=== PATIENT | female | born 1955 | race Hispanic/Latino ===

== ENCOUNTER 2020-03-08 14:39 | Inpatient (IN) | payer SELFPAY ==
[~2020-03-08] VITALS: Ht 157.5 cm; Wt 74.8 kg
[~2020-03-08 14:39] MED LIST: COREG6.25 MG PO; MICARDIS80 MG PO
[2020-03-08] MEDS ORDERED: ASPIRIN 81 MG CHEW TAB PO ONE (15:45)
[2020-03-08 17:18] LABS: BASOPHILS # (AUTO) 0.1 (0.0-0.1); BASOPHILS % 0.7 % (0.0-1.0); EOSINOPHILS # (AUTO) 0.2 (0.0-0.4); EOSINOPHILS % 1.3 % (0.0-6.0); HEMATOCRIT 27.6 % (34.2-44.1); HEMOGLOBIN 9.2 g/dL (12.0-16.0); LYMPHOCYTES # (AUTO) 2.4 (1.0-3.2); LYMPHOCYTES % 19.2 % (18.0-39.1); MEAN CORPUSCULAR HGB CONC 33.3 g/dL (31-35); MEAN CORPUSCULAR VOLUME 98.9 fL (81-99); NEUTROPHILS # (AUTO) 8.9 (2.1-6.9); NEUTROPHILS % 70.2 % (38.7-80.0); PLATELET COUNT 168 x10e3/uL (140-360); RED BLOOD COUNT 2.79 x10e6/uL (3.6-5.1); RED CELL DISTRIBUTION WIDTH 16.1 % (11.7-14.4)
[2020-03-08 17:39] LABS: ALANINE AMINOTRANSFERASE 17 IU/L (0-55); ALBUMIN 2.8 g/dL (3.5-5.0); ALBUMIN/GLOBULIN RATIO 0.6 (0.8-2.0); ALKALINE PHOSPHATASE 101 IU/L (40-150); ANION GAP 12.4 mmol/L (8-16); BLOOD UREA NITROGEN 5 mg/dL (7-26); BUN/CREATININE RATIO 7 (6-25); CALCIUM 8.4 mg/dL (8.4-10.2); CARBON DIOXIDE 25 mmol/L (22-29); CHLORIDE 99 mmol/L (98-107); CREATINE KINASE 18 IU/L (29-168); CREATININE, SERUM 0.73 mg/dL (0.57-1.11); EST GLOMERULAR FILTRATION RATE > 60 ML/MIN (60-); GLUCOSE 121 mg/dL (74-118); POTASSIUM 3.4 mmol/L (3.5-5.1); SODIUM 133 mmol/L (136-145)
[2020-03-08 22:43] VITALS: BP 139/71
[2020-03-08 22:44] VITALS: BP 139/71
[2020-03-08] MEDS: FUROSEMIDE INJ 10 MG/ML 4 ML VIAL IV SCH (23:13)
[2020-03-08 23:25] VITALS: BP 139/71
[2020-03-09] VITALS (7 sets, daily range): BP systolic 95–127; BP diastolic 43–72
[2020-03-09 06:21] LABS: BASOPHILS # (AUTO) 0.1 (0.0-0.1); BASOPHILS % 0.7 % (0.0-1.0); EOSINOPHILS # (AUTO) 0.3 (0.0-0.4); EOSINOPHILS % 2.2 % (0.0-6.0); HEMATOCRIT 25.4 % (34.2-44.1); HEMOGLOBIN 8.6 g/dL (12.0-16.0); LYMPHOCYTES % 22.6 % (18.0-39.1); MEAN CORPUSCULAR HEMOGLOBIN 32.8 pg (28-32); MEAN CORPUSCULAR HGB CONC 33.9 g/dL (31-35); MEAN CORPUSCULAR VOLUME 96.9 fL (81-99); MONOCYTES # (AUTO) 1.3 (0.2-0.8); NEUTROPHILS # (AUTO) 8.4 (2.1-6.9); PLATELET COUNT 137 x10e3/uL (140-360); RED BLOOD COUNT 2.62 x10e6/uL (3.6-5.1); RED CELL DISTRIBUTION WIDTH 16.3 % (11.7-14.4)
[2020-03-09 07:09] LABS: ALANINE AMINOTRANSFERASE 15 IU/L (0-55); ALBUMIN 2.4 g/dL (3.5-5.0); ALBUMIN/GLOBULIN RATIO 0.5 (0.8-2.0); ALKALINE PHOSPHATASE 89 IU/L (40-150); ANION GAP 12.5 mmol/L (8-16); BLOOD UREA NITROGEN 5 mg/dL (7-26); BUN/CREATININE RATIO 7 (6-25); CALCIUM 8.2 mg/dL (8.4-10.2); CARBON DIOXIDE 26 mmol/L (22-29); CHLORIDE 99 mmol/L (98-107); EST GLOMERULAR FILTRATION RATE > 60 ML/MIN (60-); GLUCOSE 107 mg/dL (74-118); POTASSIUM 3.5 mmol/L (3.5-5.1); SODIUM 134 mmol/L (136-145)
[2020-03-09] MEDS ORDERED: LACTULOSE SYRUP 20 GM/30 ML UDC PO PRN (08:00)
[2020-03-09] MEDS ORDERED: ONDANSETRON HCL INJ 2MG/ML 2ML 2 MG/ML VIAL IV PRN (08:00)
[2020-03-09] MEDS ORDERED: ZOLPIDEM TARTRATE 5 MG TAB PO PRN (08:00)
[2020-03-09 09:23] LABS: IRON 69 ug/dL (50-170); TRANSFERRIN < 70 mg/dL (180-382)
[2020-03-09 09:23] LABS: CHOL/HDL RATIO 4.5 (3.0-3.6)
[2020-03-09] MEDS: FUROSEMIDE INJ 10 MG/ML 4 ML VIAL IV SCH ×2 (09:34→21:45)
[2020-03-09] MEDS: SPIRONOLACTONE 25 MG TAB PO SCH ×2 (09:34→16:12)
[2020-03-09 09:35] LABS: INR 1.77
[2020-03-09 09:36] LABS: PARTIAL THROMBOPLASTIN TIME 50.8 seconds (23.8-35.5)
[2020-03-10] VITALS (9 sets, daily range): BP systolic 93–124; BP diastolic 49–71
[2020-03-10 02:02] LABS: CLARITY,URINE CLEAR (CLEAR); COLOR,URINE YELLOW (YELLOW); LEUKOCYTE ESTERASE ,URINE NEGATIVE (NEGATIVE); NITRITE,URINE NEGATIVE (NEGATIVE); PROTEIN,URINE DIPSTICK NEGATIVE (NEGATIVE)
[2020-03-10 02:03] LABS: BACTERIA,URINE FEW /HPF; EPITHELIAL CELLS,URINE FEW /LPF; KETONES,URINE NEGATIVE (NEGATIVE); URINE UROBILINOGEN 1 mg/dL (0.2 - 1); WBC,URINE (MAN) 0-5 /HPF (0-5)
[2020-03-10] MEDS ORDERED: PHYTONADIONE 10MG/ML 20 MG in SODIUM CHLORIDE 0.9% 100 ML IV ONE (02:30)
[2020-03-10] MEDS ORDERED: PHYTONADIONE 10 MG/ML AMP IV ONE (02:30)
[2020-03-10] MEDS ORDERED: THIAMINE HCL INJ 100 MG/ML 2ML VIAL IV ONE (03:15)
[2020-03-10] MEDS: MULTIVITAMINS- 12 INJECTION 10 ML, FOLIC ACID MDV 5 MG, THIAMINE HCL INJ 100 MG in SODI... IV SCH ×2 (05:30→20:13)
[2020-03-10 06:22] LABS: BASOPHILS # (AUTO) 0.1 (0.0-0.1); BASOPHILS % 0.7 % (0.0-1.0); EOSINOPHILS # (AUTO) 0.2 (0.0-0.4); EOSINOPHILS % 1.6 % (0.0-6.0); HEMATOCRIT 24.3 % (34.2-44.1); HEMOGLOBIN 8.2 g/dL (12.0-16.0); LYMPHOCYTES # (AUTO) 2.8 (1.0-3.2); LYMPHOCYTES % 21.6 % (18.0-39.1); MEAN CORPUSCULAR HEMOGLOBIN 33.2 pg (28-32); MEAN CORPUSCULAR HGB CONC 33.7 g/dL (31-35); MEAN CORPUSCULAR VOLUME 98.4 fL (81-99); MONOCYTES # (AUTO) 1.2 (0.2-0.8); MONOCYTES % 9.6 % (4.4-11.3); NEUTROPHILS # (AUTO) 8.5 (2.1-6.9); PLATELET COUNT 154 x10e3/uL (140-360); RED BLOOD COUNT 2.47 x10e6/uL (3.6-5.1); RED CELL DISTRIBUTION WIDTH 16.2 % (11.7-14.4)
[2020-03-10 06:53] LABS: ALANINE AMINOTRANSFERASE 16 IU/L (0-55); ALBUMIN 2.5 g/dL (3.5-5.0); ALBUMIN/GLOBULIN RATIO 0.6 (0.8-2.0); ALKALINE PHOSPHATASE 84 IU/L (40-150); ANION GAP 10.5 mmol/L (8-16); BLOOD UREA NITROGEN 6 mg/dL (7-26); BUN/CREATININE RATIO 8 (6-25); CARBON DIOXIDE 28 mmol/L (22-29); CHLORIDE 99 mmol/L (98-107); CREATININE, SERUM 0.78 mg/dL (0.57-1.11); EST GLOMERULAR FILTRATION RATE > 60 ML/MIN (60-); GLUCOSE 106 mg/dL (74-118); POTASSIUM 3.5 mmol/L (3.5-5.1); SODIUM 134 mmol/L (136-145)
[2020-03-10] MEDS: SPIRONOLACTONE 25 MG TAB PO SCH ×2 (09:00→17:46)
[2020-03-10] MEDS: FUROSEMIDE INJ 10 MG/ML 4 ML VIAL IV SCH ×2 (09:00→20:13)
[2020-03-11] VITALS (7 sets, daily range): BP systolic 94–127; BP diastolic 45–72
[2020-03-11 05:57] LABS: ALANINE AMINOTRANSFERASE 16 IU/L (0-55); ALBUMIN 2.4 g/dL (3.5-5.0); ALBUMIN/GLOBULIN RATIO 0.6 (0.8-2.0); ALKALINE PHOSPHATASE 87 IU/L (40-150); ANION GAP 11.2 mmol/L (8-16); BLOOD UREA NITROGEN 6 mg/dL (7-26); BUN/CREATININE RATIO 8 (6-25); CALCIUM 7.9 mg/dL (8.4-10.2); CARBON DIOXIDE 28 mmol/L (22-29); CHLORIDE 100 mmol/L (98-107); CREATININE, SERUM 0.77 mg/dL (0.57-1.11); EST GLOMERULAR FILTRATION RATE > 60 ML/MIN (60-); GLUCOSE 100 mg/dL (74-118); POTASSIUM 3.2 mmol/L (3.5-5.1); SODIUM 136 mmol/L (136-145)
[2020-03-11 06:02] LABS: BASOPHILS # (AUTO) 0.1 (0.0-0.1); BASOPHILS % 0.7 % (0.0-1.0); EOSINOPHILS # (AUTO) 0.4 (0.0-0.4); EOSINOPHILS % 3.2 % (0.0-6.0); HEMATOCRIT 23.5 % (34.2-44.1); LYMPHOCYTES # (AUTO) 3.1 (1.0-3.2); MEAN CORPUSCULAR HEMOGLOBIN 33.1 pg (28-32); MEAN CORPUSCULAR VOLUME 97.1 fL (81-99); MONOCYTES # (AUTO) 1.1 (0.2-0.8); MONOCYTES % 9.6 % (4.4-11.3); NEUTROPHILS # (AUTO) 6.4 (2.1-6.9); PLATELET COUNT 67 x10e3/uL (140-360); RED BLOOD COUNT 2.42 x10e6/uL (3.6-5.1)
[2020-03-11] MEDS ORDERED: FUROSEMIDE INJ 10 MG/ML 4 ML VIAL IV SCH (07:00)
[2020-03-11] MEDS ORDERED: POTASSIUM CHLORIDE 20 MEQ TAB CR PO NR (07:00)
[2020-03-11] MEDS ORDERED: POTASSIUM CHLORIDE 20MEQ/100ML 100 ML IV ONE (09:00)
[2020-03-11] MEDS: FUROSEMIDE INJ 10 MG/ML 4 ML VIAL IV SCH ×2 (09:00→21:19)
[2020-03-11] MEDS: SPIRONOLACTONE 25 MG TAB PO SCH ×2 (09:00→17:00)
[2020-03-11] MEDS: MULTIVITAMINS- 12 INJECTION 10 ML, FOLIC ACID MDV 5 MG, THIAMINE HCL INJ 100 MG in SODI... IV SCH (12:14)
[2020-03-11 12:37] LABS: BODY FLUID APPEARANCE CLEAR; BODY FLUID COLOR YELLOW; RBC,BODY FLUID 97 cells/uL; WBC,BODY FLUID 272 cells/uL
[2020-03-11 12:41] LABS: LYMPHOCYTES,BODY FLUID 30 %; MONO/MACROPHG,BODY FLUID 43 %; NEUTROPHILS,BODY FLUID 27 %
[2020-03-12] VITALS (8 sets, daily range): BP systolic 93–118; BP diastolic 49–64
[2020-03-12 06:20] LABS: INR 1.86; PROTHROMBIN TIME 22.9 seconds (11.9-14.5)
[2020-03-12 06:21] LABS: PARTIAL THROMBOPLASTIN TIME 48.7 seconds (23.8-35.5)
[2020-03-12 06:31] LABS: ALANINE AMINOTRANSFERASE 18 IU/L (0-55); ALBUMIN 2.5 g/dL (3.5-5.0); ALBUMIN/GLOBULIN RATIO 0.6 (0.8-2.0); ALKALINE PHOSPHATASE 88 IU/L (40-150); ANION GAP 12.1 mmol/L (8-16); BLOOD UREA NITROGEN 6 mg/dL (7-26); BUN/CREATININE RATIO 8 (6-25); CARBON DIOXIDE 27 mmol/L (22-29); CHLORIDE 99 mmol/L (98-107); CREATININE, SERUM 0.79 mg/dL (0.57-1.11); EST GLOMERULAR FILTRATION RATE > 60 ML/MIN (60-); GLUCOSE 94 mg/dL (74-118); POTASSIUM 3.1 mmol/L (3.5-5.1); SODIUM 135 mmol/L (136-145)
[2020-03-12] MEDS: MULTIVITAMINS- 12 INJECTION 10 ML, FOLIC ACID MDV 5 MG, THIAMINE HCL INJ 100 MG in SODI... IV SCH ×2 (06:42→21:58)
[2020-03-12 06:49] LABS: BASOPHILS # (AUTO) 0.1 (0.0-0.1); BASOPHILS % 0.9 % (0.0-1.0); EOSINOPHILS # (AUTO) 0.3 (0.0-0.4); EOSINOPHILS % 2.8 % (0.0-6.0); HEMATOCRIT 23.3 % (34.2-44.1); LYMPHOCYTES # (AUTO) 2.3 (1.0-3.2); LYMPHOCYTES % 26.3 % (18.0-39.1); MEAN CORPUSCULAR HEMOGLOBIN 33.2 pg (28-32); MEAN CORPUSCULAR HGB CONC 34.3 g/dL (31-35); MEAN CORPUSCULAR VOLUME 96.7 fL (81-99); MONOCYTES # (AUTO) 0.8 (0.2-0.8); MONOCYTES % 8.6 % (4.4-11.3); NEUTROPHILS # (AUTO) 5.4 (2.1-6.9); NEUTROPHILS % 61.2 % (38.7-80.0); PLATELET COUNT 156 x10e3/uL (140-360); RED BLOOD COUNT 2.41 x10e6/uL (3.6-5.1); RED CELL DISTRIBUTION WIDTH 15.9 % (11.7-14.4)
[2020-03-12] MEDS: FUROSEMIDE INJ 10 MG/ML 4 ML VIAL IV SCH ×2 (09:20→20:39)
[2020-03-12] MEDS: SPIRONOLACTONE 25 MG TAB PO SCH ×2 (09:20→16:43)
[2020-03-12 11:27] LABS: PLATELET CLUMPS FEW; PLATELET ESTIMATE ADEQUATE
[2020-03-12 11:28] LABS: POIKILOCYTOSIS SLIGHT; RBC MORPHOLOGY COMMENT NORMAL
[2020-03-13] VITALS: BP 103/57
[2020-03-13] MEDS ORDERED: POTASSIUM CHLORIDE 20 MEQ TAB CR PO STA
[2020-03-13 04:00] VITALS: BP 98/50
[2020-03-13] MEDS ORDERED: ALDACTONE25 MG PO (07:01)
[2020-03-13] MEDS ORDERED: LASIX10 MG/ML PO (07:01)
[2020-03-13] MEDS ORDERED: LACTULOSE20 GM/30 M PO (07:01)
[2020-03-13] MEDS ORDERED: XIFAXAN550 MG PO (07:01)
[2020-03-13 07:40] LABS: BASOPHILS # (AUTO) 0.1 (0.0-0.1); EOSINOPHILS # (AUTO) 0.3 (0.0-0.4); LYMPHOCYTES # (AUTO) 2.6 (1.0-3.2); LYMPHOCYTES % 25.3 % (18.0-39.1); MEAN CORPUSCULAR HEMOGLOBIN 32.8 pg (28-32); MEAN CORPUSCULAR HGB CONC 33.3 g/dL (31-35); MEAN CORPUSCULAR VOLUME 98.4 fL (81-99); MONOCYTES # (AUTO) 0.8 (0.2-0.8); MONOCYTES % 8.2 % (4.4-11.3); NEUTROPHILS # (AUTO) 6.3 (2.1-6.9); NEUTROPHILS % 62.1 % (38.7-80.0); PLATELET COUNT 152 x10e3/uL (140-360); RED BLOOD COUNT 2.44 x10e6/uL (3.6-5.1); RED CELL DISTRIBUTION WIDTH 15.9 % (11.7-14.4)
[2020-03-13 08:08] VITALS: BP 106/52
[2020-03-13 08:13] LABS: MAGNESIUM 1.4 MG/DL (1.3-2.1); PHOSPHORUS 2.5 MG/DL (2.3-4.7)
[2020-03-13 08:15] LABS: ALANINE AMINOTRANSFERASE 19 IU/L (0-55); ALBUMIN 2.4 g/dL (3.5-5.0); ALBUMIN/GLOBULIN RATIO 0.6 (0.8-2.0); ALKALINE PHOSPHATASE 88 IU/L (40-150); ANION GAP 12.6 mmol/L (8-16); BLOOD UREA NITROGEN 6 mg/dL (7-26); BUN/CREATININE RATIO 8 (6-25); CARBON DIOXIDE 26 mmol/L (22-29); CHLORIDE 102 mmol/L (98-107); CREATININE, SERUM 0.78 mg/dL (0.57-1.11); EST GLOMERULAR FILTRATION RATE > 60 ML/MIN (60-); GLUCOSE 100 mg/dL (74-118); POTASSIUM 3.6 mmol/L (3.5-5.1); SODIUM 137 mmol/L (136-145)
[2020-03-13] MEDS: FUROSEMIDE INJ 10 MG/ML 4 ML VIAL IV SCH (08:17)
[2020-03-13] MEDS ORDERED: ONDANSETRON HCL 4 MG ORAL DISINTEGRATING TAB PO PRN (08:30)
[2020-03-13 08:39] VITALS: BP 106/52
[2020-03-13] MEDS ORDERED: RIFAXIMIN 550 MG TABLET PO SCH (09:00)
[2020-03-13] MEDS ORDERED: SPIRONOLACTONE 25 MG TAB PO SCH (09:00)
== END 2020-03-13 10:58 | disposition home or self-care (01) | DRG 434 ==
LOC: ER 15:26 → ERHOLD 21:09 → MED/SURG2 22:15
PROVIDERS: ADMIT Internal Medicine; ATTEND Internal Medicine
PROC: 0W9G3ZZ Drainage of Peritoneal Cavity, Percutaneous Approach (ICD-10-PCS; principal; 2020-03-11)
DX: K70.31 Alcoholic cirrhosis of liver with ascites (principal); F10.20 Alcohol dependence, uncomplicated; D63.8 Anemia in other chronic diseases classified elsewhere; Z20.822 Contact with and (suspected) exposure to COVID-19
CPT/HCPCS: 36415; 49083; 71046; 74470; 76705; 80053; 80061; 81001; 82140; 82550; 82553; 82607; 82746; 83036; 83540; 83690; 83735; 83880; 84100; 84466; 84484; 85025; 85045; 85610; 85730; 87070; 87205; 88112; 88305; 89051; 93005; 93925; 93970; 99284; J1940; J3411; J3430; J3480; J7030; J7050; U0002

== ENCOUNTER 2021-05-17 22:23 | Inpatient (IN) | payer OTHER ==
[~2021-05-17] VITALS: Ht 157.5 cm; Wt 81.2 kg
[~2021-05-17 22:23] MED LIST changes: +ALDACTONE25 MG PO; +LACTULOSE20 GM/30 M PO; +LASIX10 MG/ML PO; +XIFAXAN550 MG PO
[2021-05-17 23:38] LABS: BASOPHILS % 0.4 % (0.0-1.0); EOSINOPHILS # (AUTO) 0.5 (0.0-0.4); EOSINOPHILS % 6.8 % (0.0-6.0); LYMPHOCYTES # (AUTO) 1.9 (1.0-3.2); LYMPHOCYTES % 24.1 % (18.0-39.1); MEAN CORPUSCULAR HEMOGLOBIN 23.3 pg (28-32); MEAN CORPUSCULAR HGB CONC 28.6 g/dL (31-35); MEAN CORPUSCULAR VOLUME 81.5 fL (81-99); MONOCYTES # (AUTO) 0.9 (0.2-0.8); MONOCYTES % 10.8 % (4.4-11.3); NEUTROPHILS # (AUTO) 4.5 (2.1-6.9); PLATELET COUNT 173 x10e3/uL (140-360); RED BLOOD COUNT 1.89 x10e6/uL (3.6-5.1); RED CELL DISTRIBUTION WIDTH 19.7 % (11.7-14.4)
[2021-05-17 23:43] LABS: INR 1.93; PROTHROMBIN TIME 23.6 seconds (11.9-14.5)
[2021-05-17 23:51] LABS: ALBUMIN 2.8 g/dL (3.5-5.0); ALBUMIN/GLOBULIN RATIO 0.7 (0.8-2.0); ANION GAP 15.1 mmol/L (8-16); CREATININE, SERUM 2.71 mg/dL (0.57-1.11); HEMATOCRIT 15.4 % (34.2-44.1); HEMOGLOBIN 4.4 g/dL (12.0-16.0); POTASSIUM 4.1 mmol/L (3.5-5.1)
[2021-05-17 23:52] LABS: CALCIUM 9.3 mg/dL (8.4-10.2)
[2021-05-18] VITALS (38 sets, daily range): BP systolic 83–133; BP diastolic 41–78
[2021-05-18 00:11] LABS: WBC,URINE (MAN) 21-50 /HPF (0-5)
[2021-05-18 00:12] LABS: BACTERIA,URINE MODERATE /HPF; EPITHELIAL CELLS,URINE MODERATE /LPF
[2021-05-18 00:14] LABS: CALCIUM CARBONATE CRYSTALS,UR FEW
[2021-05-18] MEDS ORDERED: OCTREOTIDE ACETATE 500 MCG in SODIUM CHLORIDE 0.9% 250ML 250 ML IV STA (00:15)
[2021-05-18 00:16] LABS: CLARITY,URINE CLEAR (CLEAR); COLOR,URINE YELLOW (YELLOW); KETONES,URINE NEGATIVE (NEGATIVE); LEUKOCYTE ESTERASE ,URINE NEGATIVE (NEGATIVE); NITRITE,URINE NEGATIVE (NEGATIVE); PROTEIN,URINE DIPSTICK NEGATIVE (NEGATIVE); RENAL EPITHELIAL CELLS,URINE FEW; TRANSITIONAL EPI CELLS,URINE FEW; URINE UROBILINOGEN 1 mg/dL (0.2 - 1)
[2021-05-18] MEDS ORDERED: CEFTRIAXONE 1 GM VIAL IV ONE (00:30)
[2021-05-18] MEDS ORDERED: ONDANSETRON HCL INJ 2MG/ML 2ML 2 MG/ML VIAL IV PRN ×2 (00:30→01:30)
[2021-05-18] MEDS ORDERED: LACTULOSE SYRUP 20 GM/30 ML UDC PO PRN (00:30)
[2021-05-18] MEDS ORDERED: CEFTRIAXONE 1 GM in SODIUM CHLORIDE 0.9% 50ML 50 ML IV ONE (01:00)
[2021-05-18] MEDS ORDERED: ALBUTEROL/IPRATROPIUM 3 ML NEB NEB PRN (01:30)
[2021-05-18] MEDS ORDERED: HYDRALAZINE HCL 20 MG/ML VIAL IV PRN (01:30)
[2021-05-18] MEDS ORDERED: LIDOCAINE 4% PATCH TP PRN (01:30)
[2021-05-18] MEDS ORDERED: DOCUSATE SODIUM 100 MG CAP PO PRN (01:30)
[2021-05-18] MEDS ORDERED: DIPHENHYDRAMINE HCL 25 MG CAP PO PRN (01:30)
[2021-05-18] MEDS ORDERED: MELATONIN 5 MG TABLET PO PRN (01:30)
[2021-05-18] MEDS ORDERED: DEXTROSE 50% SYRINGE 50 ML IV PRN (01:30)
[2021-05-18] MEDS ORDERED: SODIUM CHLORIDE 0.9% 250ML 250 ML ONE (02:56)
[2021-05-18 08:15] LABS: BASOPHILS % 0.4 % (0.0-1.0); EOSINOPHILS # (AUTO) 0.6 (0.0-0.4); EOSINOPHILS % 6.8 % (0.0-6.0); LYMPHOCYTES # (AUTO) 2.8 (1.0-3.2); LYMPHOCYTES % 32.4 % (18.0-39.1); MEAN CORPUSCULAR HEMOGLOBIN 24.9 pg (28-32); MEAN CORPUSCULAR HGB CONC 30.8 g/dL (31-35); MEAN CORPUSCULAR VOLUME 80.8 fL (81-99); MONOCYTES # (AUTO) 0.9 (0.2-0.8); MONOCYTES % 10.2 % (4.4-11.3); NEUTROPHILS # (AUTO) 4.3 (2.1-6.9); NEUTROPHILS % 49.8 % (38.7-80.0); PLATELET COUNT 149 x10e3/uL (140-360); RED BLOOD COUNT 2.13 x10e6/uL (3.6-5.1); RED CELL DISTRIBUTION WIDTH 18.6 % (11.7-14.4)
[2021-05-18 08:19] LABS: HEMATOCRIT 17.2 % (34.2-44.1); HEMOGLOBIN 5.3 g/dL (12.0-16.0)
[2021-05-18 08:35] LABS: CHOL/HDL RATIO 7.2 (3.0-3.6)
[2021-05-18 08:36] LABS: ANION GAP 14.3 mmol/L (8-16); CALCIUM 8.8 mg/dL (8.4-10.2); CREATININE, SERUM 2.44 mg/dL (0.57-1.11); MAGNESIUM 2.3 MG/DL (1.3-2.1); PHOSPHORUS 3.7 MG/DL (2.3-4.7); POTASSIUM 4.3 mmol/L (3.5-5.1)
[2021-05-18] MEDS ORDERED: DEXTROSE 5%/0.9% SOD CHL 1,000 ML IV ONE (10:30)
[2021-05-18] MEDS ORDERED: ALBUMIN 25% 12.5GM 0.25 GM/ML BTL IV ONE (10:30)
[2021-05-18 11:24] LABS: CREATININE,URINE RANDOM 114.49 mg/dL (47-110)
[2021-05-18 11:32] LABS: SODIUM,URINE < 20 mmol/L
[2021-05-18] MEDS: OCTREOTIDE ACETATE 500 MCG in SODIUM CHLORIDE 0.9% 250ML 249 ML IV SCH (14:02)
[2021-05-18 14:51] LABS: HEMATOCRIT 21.6 % (34.2-44.1); HEMOGLOBIN 6.9 g/dL (12.0-16.0)
[2021-05-18] MEDS ORDERED: SODIUM CHLORIDE 0.9% 250ML 250 ML IV ONE ×2 (15:00)
[2021-05-18] MEDS ORDERED: FUROSEMIDE INJ 10 MG/ML 10 ML VIAL IV ONE (15:00)
[2021-05-18] MEDS ORDERED: FUROSEMIDE INJ 10 MG/ML 4 ML VIAL IV ONE ×2 (15:45→16:00)
[2021-05-18] MEDS ORDERED: FUROSEMIDE INJ 100 MG in SODIUM CHLORIDE 0.9% 90 ML IV ONE (16:00)
[2021-05-18] MEDS: LACTULOSE SYRUP 20 GM/30 ML UDC PO SCH (16:18)
[2021-05-18] MEDS: RIFAXIMIN 550 MG TABLET PO SCH (16:18)
[2021-05-18] MEDS ORDERED: FUROSEMIDE INJ 10 MG/ML 4 ML VIAL ONE (19:16)
[2021-05-18] MEDS: CEFTRIAXONE 1 GM in SODIUM CHLORIDE 0.9% 50ML 50 ML IV SCH (21:55)
[2021-05-19] VITALS (15 sets, daily range): BP systolic 102–147; BP diastolic 48–80
[2021-05-19] MEDS: OCTREOTIDE ACETATE 500 MCG in SODIUM CHLORIDE 0.9% 250ML 249 ML IV SCH ×3 (00:53→20:27)
[2021-05-19 01:56] LABS: % IRON SATURATION 5 % (15-50); IRON 23 ug/dL (50-170); TOTAL IRON BINDING CAPACITY 475 ug/dL (261-478); TRANSFERRIN 339 mg/dL (180-382)
[2021-05-19 05:06] LABS: BASOPHILS # (AUTO) 0.1 (0.0-0.1); EOSINOPHILS # (AUTO) 0.6 (0.0-0.4); EOSINOPHILS % 8.5 % (0.0-6.0); HEMATOCRIT 25.1 % (34.2-44.1); HEMOGLOBIN 8.3 g/dL (12.0-16.0); LYMPHOCYTES # (AUTO) 1.7 (1.0-3.2); MEAN CORPUSCULAR HEMOGLOBIN 27.3 pg (28-32); MEAN CORPUSCULAR HGB CONC 33.1 g/dL (31-35); MEAN CORPUSCULAR VOLUME 82.6 fL (81-99); MONOCYTES # (AUTO) 0.9 (0.2-0.8); MONOCYTES % 13.4 % (4.4-11.3); NEUTROPHILS # (AUTO) 3.7 (2.1-6.9); NEUTROPHILS % 52.7 % (38.7-80.0); PLATELET COUNT 107 x10e3/uL (140-360); RED BLOOD COUNT 3.04 x10e6/uL (3.6-5.1)
[2021-05-19 05:33] LABS: ALBUMIN 2.5 g/dL (3.5-5.0); ALBUMIN/GLOBULIN RATIO 0.7 (0.8-2.0); ANION GAP 13.8 mmol/L (8-16); CALCIUM 8.7 mg/dL (8.4-10.2); CREATININE, SERUM 2.22 mg/dL (0.57-1.11); POTASSIUM 3.8 mmol/L (3.5-5.1)
[2021-05-19] MEDS: LACTULOSE SYRUP 20 GM/30 ML UDC PO SCH ×2 (08:23→16:55)
[2021-05-19] MEDS: RIFAXIMIN 550 MG TABLET PO SCH ×2 (08:23→16:55)
[2021-05-19 09:39] LABS: INR 1.75; PROTHROMBIN TIME 21.8 seconds (11.9-14.5)
[2021-05-19] MEDS ORDERED: MULTIVITAMINS- 12 INJECTION 10 ML, THIAMINE HCL INJ 100 MG, FOLIC ACID MDV 1 MG in SODI... IV ONE (13:00)
[2021-05-19] MEDS: SPIRONOLACTONE 25 MG TAB PO SCH ×2 (16:19→20:53)
[2021-05-19] MEDS: CEFTRIAXONE 1 GM in SODIUM CHLORIDE 0.9% 50ML 50 ML IV SCH (20:53)
[2021-05-19] MEDS ORDERED: PHYTONADIONE 10 MG/ML AMP IV ONE (23:15)
[2021-05-19] MEDS ORDERED: SODIUM CHLORIDE 0.9% IV ONE (23:45)
[2021-05-19] MEDS ORDERED: PHYTONADIONE IV ONE (23:45)
[2021-05-20] VITALS (8 sets, daily range): BP systolic 121–137; BP diastolic 64–82
[2021-05-20] MEDS ORDERED: SODIUM CHLORIDE 0.9% 250ML 250 ML ONE ×2 (00:26→06:39)
[2021-05-20] MEDS: OCTREOTIDE ACETATE 500 MCG in SODIUM CHLORIDE 0.9% 250ML 249 ML IV SCH ×2 (05:03→18:40)
[2021-05-20 06:01] LABS: BASOPHILS # (AUTO) 0.1 (0.0-0.1); BASOPHILS % 0.8 % (0.0-1.0); EOSINOPHILS # (AUTO) 0.7 (0.0-0.4); EOSINOPHILS % 7.6 % (0.0-6.0); HEMATOCRIT 24.5 % (34.2-44.1); LYMPHOCYTES # (AUTO) 1.8 (1.0-3.2); LYMPHOCYTES % 20.7 % (18.0-39.1); MEAN CORPUSCULAR HEMOGLOBIN 27.7 pg (28-32); MEAN CORPUSCULAR HGB CONC 32.7 g/dL (31-35); MEAN CORPUSCULAR VOLUME 84.8 fL (81-99); MONOCYTES # (AUTO) 0.9 (0.2-0.8); MONOCYTES % 10.6 % (4.4-11.3); NEUTROPHILS # (AUTO) 5.2 (2.1-6.9); NEUTROPHILS % 59.4 % (38.7-80.0); PLATELET COUNT 102 x10e3/uL (140-360); RED BLOOD COUNT 2.89 x10e6/uL (3.6-5.1); RED CELL DISTRIBUTION WIDTH 17.2 % (11.7-14.4)
[2021-05-20 06:16] LABS: INR 1.68; PROTHROMBIN TIME 21.1 seconds (11.9-14.5)
[2021-05-20 06:27] LABS: ALBUMIN 2.7 g/dL (3.5-5.0); ALBUMIN/GLOBULIN RATIO 0.8 (0.8-2.0); ANION GAP 9.4 mmol/L (8-16); CALCIUM 8.5 mg/dL (8.4-10.2); CREATININE, SERUM 1.52 mg/dL (0.57-1.11); POTASSIUM 3.4 mmol/L (3.5-5.1)
[2021-05-20] MEDS: LIDOCAINE 4% PATCH TP SCH (09:18)
[2021-05-20] MEDS: SPIRONOLACTONE 25 MG TAB PO SCH ×3 (09:19→21:16)
[2021-05-20] MEDS: RIFAXIMIN 550 MG TABLET PO SCH ×2 (09:19→18:40)
[2021-05-20] MEDS: LACTULOSE SYRUP 20 GM/30 ML UDC PO SCH ×2 (09:19→18:40)
[2021-05-20] MEDS: IRON SUCROSE 100 MG in SODIUM CHLORIDE 0.9% 100 ML 100 ML IV SCH (09:26)
[2021-05-20] MEDS ORDERED: ALBUMIN 5% 0.05 GM/ML BTL IV ONE (15:00)
[2021-05-20] MEDS ORDERED: POTASSIUM CHLORIDE 20MEQ/100ML 200 ML IV ONE (15:30)
[2021-05-20] MEDS: CEFTRIAXONE 1 GM in SODIUM CHLORIDE 0.9% 50ML 50 ML IV SCH (21:16)
[2021-05-20] MEDS ORDERED: PHYTONADIONE 10MG/ML 20 MG in SODIUM CHLORIDE 0.9% 50ML 50 ML IV ONE (22:30)
[2021-05-20] MEDS ORDERED: PHYTONADIONE 10 MG/ML AMP IV ONE (22:30)
[2021-05-21] VITALS (8 sets, daily range): BP systolic 128–142; BP diastolic 62–81
[2021-05-21] MEDS: OCTREOTIDE ACETATE 500 MCG in SODIUM CHLORIDE 0.9% 250ML 249 ML IV SCH ×4 (01:16→20:34)
[2021-05-21 06:12] LABS: BASOPHILS # (AUTO) 0.1 (0.0-0.1); BASOPHILS % 1.1 % (0.0-1.0); EOSINOPHILS # (AUTO) 0.6 (0.0-0.4); EOSINOPHILS % 5.6 % (0.0-6.0); HEMATOCRIT 25.5 % (34.2-44.1); HEMOGLOBIN 8.3 g/dL (12.0-16.0); LYMPHOCYTES # (AUTO) 2.2 (1.0-3.2); LYMPHOCYTES % 21.2 % (18.0-39.1); MEAN CORPUSCULAR HEMOGLOBIN 27.9 pg (28-32); MEAN CORPUSCULAR HGB CONC 32.5 g/dL (31-35); MEAN CORPUSCULAR VOLUME 85.9 fL (81-99); MONOCYTES # (AUTO) 1.1 (0.2-0.8); MONOCYTES % 10.5 % (4.4-11.3); NEUTROPHILS # (AUTO) 6.2 (2.1-6.9); NEUTROPHILS % 60.7 % (38.7-80.0); PLATELET COUNT 103 x10e3/uL (140-360); RED BLOOD COUNT 2.97 x10e6/uL (3.6-5.1); RED CELL DISTRIBUTION WIDTH 17.8 % (11.7-14.4)
[2021-05-21 06:37] LABS: ALBUMIN 2.7 g/dL (3.5-5.0); ALBUMIN/GLOBULIN RATIO 0.8 (0.8-2.0); ANION GAP 10.3 mmol/L (8-16); CALCIUM 8.1 mg/dL (8.4-10.2); CREATININE, SERUM 1.32 mg/dL (0.57-1.11); INR 2.05; POTASSIUM 4.3 mmol/L (3.5-5.1); PROTHROMBIN TIME 24.7 seconds (11.9-14.5)
[2021-05-21] MEDS: SPIRONOLACTONE 25 MG TAB PO SCH ×3 (08:31→20:33)
[2021-05-21] MEDS: RIFAXIMIN 550 MG TABLET PO SCH ×2 (08:32→18:22)
[2021-05-21] MEDS: LIDOCAINE 4% PATCH TP SCH (08:32)
[2021-05-21] MEDS: LACTULOSE SYRUP 20 GM/30 ML UDC PO SCH (08:37)
[2021-05-21] MEDS: IRON SUCROSE 100 MG in SODIUM CHLORIDE 0.9% 100 ML 100 ML IV SCH (09:39)
[2021-05-21] MEDS ORDERED: SODIUM CHLORIDE 0.9% 250ML 250 ML ONE (11:57)
[2021-05-21] MEDS ORDERED: MIDAZOLAM HCL 2 MG/2 ML VIAL ONE (12:39)
[2021-05-21] MEDS ORDERED: FENTANYL CITRATE/PF 100MCG/2 ML INJ ONE (12:39)
[2021-05-21] MEDS ORDERED: PROPOFOL IV EMULSION 10 MG/ML 20 ML VIAL ONE (13:15)
[2021-05-21 18:16] LABS: INR 1.62; PROTHROMBIN TIME 20.6 seconds (11.9-14.5)
[2021-05-21] MEDS: Pantoprazole IV 40 MG in SODIUM CHLORIDE 0.9% 50ML 50 ML IV SCH ×2 (18:22→21:56)
[2021-05-21] MEDS: FUROSEMIDE INJ 10 MG/ML 4 ML VIAL IV SCH (18:23)
[2021-05-21] MEDS: CEFTRIAXONE 1 GM in SODIUM CHLORIDE 0.9% 50ML 50 ML IV SCH (21:23)
[2021-05-22] VITALS (8 sets, daily range): BP systolic 96–141; BP diastolic 45–68
[2021-05-22] MEDS ORDERED: PROPRANOLOL HCL 10 MG TAB PO ONE (00:15)
[2021-05-22] MEDS: Pantoprazole IV 40 MG in SODIUM CHLORIDE 0.9% 50ML 50 ML IV SCH ×5 (04:05→21:23)
[2021-05-22] MEDS: LACTULOSE SYRUP 20 GM/30 ML UDC PO SCH (09:00)
[2021-05-22] MEDS: OCTREOTIDE ACETATE 500 MCG in SODIUM CHLORIDE 0.9% 250ML 249 ML IV SCH ×2 (09:16→16:53)
[2021-05-22] MEDS: FUROSEMIDE INJ 10 MG/ML 4 ML VIAL IV SCH ×2 (09:16→16:52)
[2021-05-22] MEDS: SPIRONOLACTONE 25 MG TAB PO SCH ×3 (09:17→21:33)
[2021-05-22] MEDS: LIDOCAINE 4% PATCH TP SCH (09:17)
[2021-05-22] MEDS: RIFAXIMIN 550 MG TABLET PO SCH ×2 (09:17→16:53)
[2021-05-22] MEDS: IRON SUCROSE 100 MG in SODIUM CHLORIDE 0.9% 100 ML 100 ML IV SCH (09:27)
[2021-05-22] MEDS ORDERED: FUROSEMIDE INJ 10 MG/ML 4 ML VIAL IV ONE (14:30)
[2021-05-22] MEDS ORDERED: SODIUM CHLORIDE 0.9% 50ML 50 ML ONE (16:59)
[2021-05-22] MEDS ORDERED: PROPRANOLOL HCL 10 MG TAB PO SCH (17:00)
[2021-05-22] MEDS: CEFTRIAXONE 1 GM in SODIUM CHLORIDE 0.9% 50ML 50 ML IV SCH (21:22)
[2021-05-23] VITALS (8 sets, daily range): BP systolic 105–116; BP diastolic 52–62
[2021-05-23] MEDS: PANTOPRAZOLE SOD 40 MG TABEC PO SCH (05:15)
[2021-05-23 06:11] LABS: BASOPHILS # (AUTO) 0.1 (0.0-0.1); BASOPHILS % 0.6 % (0.0-1.0); EOSINOPHILS # (AUTO) 0.6 (0.0-0.4); EOSINOPHILS % 3.7 % (0.0-6.0); HEMATOCRIT 26.1 % (34.2-44.1); HEMOGLOBIN 8.5 g/dL (12.0-16.0); LYMPHOCYTES # (AUTO) 2.5 (1.0-3.2); LYMPHOCYTES % 15.1 % (18.0-39.1); MEAN CORPUSCULAR HEMOGLOBIN 28.2 pg (28-32); MEAN CORPUSCULAR HGB CONC 32.6 g/dL (31-35); MEAN CORPUSCULAR VOLUME 86.7 fL (81-99); MONOCYTES # (AUTO) 1.7 (0.2-0.8); MONOCYTES % 10.4 % (4.4-11.3); NEUTROPHILS # (AUTO) 11.2 (2.1-6.9); NEUTROPHILS % 68.9 % (38.7-80.0); PLATELET COUNT 104 x10e3/uL (140-360); RED BLOOD COUNT 3.01 x10e6/uL (3.6-5.1); RED CELL DISTRIBUTION WIDTH 19.4 % (11.7-14.4)
[2021-05-23 06:30] LABS: INR 1.88; PROTHROMBIN TIME 23.1 seconds (11.9-14.5)
[2021-05-23 06:31] LABS: ALBUMIN 2.5 g/dL (3.5-5.0); ALBUMIN/GLOBULIN RATIO 0.8 (0.8-2.0); ANION GAP 9.7 mmol/L (8-16); CALCIUM 7.8 mg/dL (8.4-10.2); CREATININE, SERUM 1.52 mg/dL (0.57-1.11); POTASSIUM 3.7 mmol/L (3.5-5.1)
[2021-05-23] MEDS: FUROSEMIDE INJ 10 MG/ML 4 ML VIAL IV SCH ×2 (08:35→17:09)
[2021-05-23] MEDS: SPIRONOLACTONE 25 MG TAB PO SCH ×3 (08:35→20:21)
[2021-05-23] MEDS: PROPRANOLOL HCL 10 MG TAB PO SCH ×2 (08:35→17:09)
[2021-05-23] MEDS: LACTULOSE SYRUP 20 GM/30 ML UDC PO SCH (08:36)
[2021-05-23] MEDS: RIFAXIMIN 550 MG TABLET PO SCH ×2 (08:36→17:09)
[2021-05-23] MEDS: LIDOCAINE 4% PATCH TP SCH (08:36)
[2021-05-23] MEDS: IRON SUCROSE 100 MG in SODIUM CHLORIDE 0.9% 100 ML 100 ML IV SCH (08:47)
[2021-05-23] MEDS ORDERED: SODIUM CHLORIDE 0.9% 250ML 250 ML ONE (08:54)
[2021-05-23 13:11] LABS: BASOPHILS # (AUTO) 0.1 (0.0-0.1); BASOPHILS % 0.7 % (0.0-1.0); EOSINOPHILS # (AUTO) 0.7 (0.0-0.4); EOSINOPHILS % 4.5 % (0.0-6.0); HEMATOCRIT 27.8 % (34.2-44.1); HEMOGLOBIN 8.8 g/dL (12.0-16.0); LYMPHOCYTES # (AUTO) 2.8 (1.0-3.2); MEAN CORPUSCULAR HEMOGLOBIN 27.8 pg (28-32); MEAN CORPUSCULAR HGB CONC 31.7 g/dL (31-35); MEAN CORPUSCULAR VOLUME 87.7 fL (81-99); MONOCYTES # (AUTO) 1.9 (0.2-0.8); MONOCYTES % 11.6 % (4.4-11.3); NEUTROPHILS # (AUTO) 10.8 (2.1-6.9); NEUTROPHILS % 65.1 % (38.7-80.0); PLATELET COUNT 103 x10e3/uL (140-360); RED BLOOD COUNT 3.17 x10e6/uL (3.6-5.1); RED CELL DISTRIBUTION WIDTH 19.6 % (11.7-14.4)
[2021-05-23] MEDS: CEFTRIAXONE 1 GM in SODIUM CHLORIDE 0.9% 50ML 50 ML IV SCH (20:21)
[2021-05-24] VITALS (8 sets, daily range): BP systolic 98–115; BP diastolic 55–58
[2021-05-24] MEDS ORDERED: PHYTONADIONE 10 MG/ML AMP IV ONE (01:30)
[2021-05-24] MEDS ORDERED: SODIUM CHLORIDE 0.9% 50ML 50 ML ONE (01:55)
[2021-05-24] MEDS: LIDOCAINE 4% PATCH TP SCH ×3 (02:06→21:28)
[2021-05-24] MEDS: PANTOPRAZOLE SOD 40 MG TABEC PO SCH (05:55)
[2021-05-24 06:57] LABS: BASOPHILS # (AUTO) 0.1 (0.0-0.1); BASOPHILS % 0.6 % (0.0-1.0); EOSINOPHILS # (AUTO) 0.7 (0.0-0.4); EOSINOPHILS % 3.6 % (0.0-6.0); HEMATOCRIT 28.3 % (34.2-44.1); LYMPHOCYTES # (AUTO) 3.4 (1.0-3.2); LYMPHOCYTES % 18.7 % (18.0-39.1); MEAN CORPUSCULAR HEMOGLOBIN 27.7 pg (28-32); MEAN CORPUSCULAR HGB CONC 31.8 g/dL (31-35); MEAN CORPUSCULAR VOLUME 87.1 fL (81-99); MONOCYTES # (AUTO) 2.3 (0.2-0.8); MONOCYTES % 12.7 % (4.4-11.3); NEUTROPHILS # (AUTO) 11.3 (2.1-6.9); NEUTROPHILS % 63.1 % (38.7-80.0); PLATELET COUNT 118 x10e3/uL (140-360); RED BLOOD COUNT 3.25 x10e6/uL (3.6-5.1); RED CELL DISTRIBUTION WIDTH 20.2 % (11.7-14.4)
[2021-05-24 07:20] LABS: ALBUMIN 2.5 g/dL (3.5-5.0); ALBUMIN/GLOBULIN RATIO 0.7 (0.8-2.0); ANION GAP 10.2 mmol/L (8-16); CALCIUM 7.9 mg/dL (8.4-10.2); CREATININE, SERUM 1.43 mg/dL (0.57-1.11); POTASSIUM 4.2 mmol/L (3.5-5.1)
[2021-05-24] MEDS: PROPRANOLOL HCL 10 MG TAB PO SCH ×2 (07:59→17:00)
[2021-05-24] MEDS: IRON SUCROSE 100 MG in SODIUM CHLORIDE 0.9% 100 ML 100 ML IV SCH (09:51)
[2021-05-24] MEDS: FUROSEMIDE INJ 10 MG/ML 4 ML VIAL IV SCH ×2 (09:51→17:07)
[2021-05-24] MEDS: SPIRONOLACTONE 25 MG TAB PO SCH ×3 (09:52→21:28)
[2021-05-24] MEDS: LACTULOSE SYRUP 20 GM/30 ML UDC PO SCH (09:52)
[2021-05-24] MEDS: RIFAXIMIN 550 MG TABLET PO SCH ×3 (09:52→17:08)
[2021-05-24] MEDS: PIPERACILLIN/TAZOBACTAM 3.375 GM in SODIUM CHLORIDE 0.9% 50ML 50 ML IV SCH ×2 (15:03→21:28)
[2021-05-24 16:46] LABS: CLARITY,URINE CLEAR (CLEAR); COLOR,URINE YELLOW (YELLOW); KETONES,URINE NEGATIVE (NEGATIVE); LEUKOCYTE ESTERASE ,URINE TRACE (NEGATIVE); NITRITE,URINE NEGATIVE (NEGATIVE); PROTEIN,URINE DIPSTICK NEGATIVE (NEGATIVE); URINE UROBILINOGEN 0.2 mg/dL (0.2 - 1)
[2021-05-24 16:50] LABS: BACTERIA,URINE FEW /HPF; EPITHELIAL CELLS,URINE MODERATE /LPF; HYALINE CASTS 0-1 (0-1); RBC,URINE 0-5 /HPF (0-5); WBC,URINE (MAN) 0-5 /HPF (0-5)
[2021-05-25] VITALS (8 sets, daily range): BP systolic 93–139; BP diastolic 43–69
[2021-05-25] MEDS: PANTOPRAZOLE SOD 40 MG TABEC PO SCH (05:51)
[2021-05-25] MEDS: PIPERACILLIN/TAZOBACTAM 3.375 GM in SODIUM CHLORIDE 0.9% 50ML 50 ML IV SCH ×3 (05:51→21:45)
[2021-05-25 06:41] LABS: BASOPHILS # (AUTO) 0.1 (0.0-0.1); BASOPHILS % 0.7 % (0.0-1.0); EOSINOPHILS # (AUTO) 0.4 (0.0-0.4); EOSINOPHILS % 2.8 % (0.0-6.0); HEMATOCRIT 28.8 % (34.2-44.1); HEMOGLOBIN 9.2 g/dL (12.0-16.0); LYMPHOCYTES # (AUTO) 2.5 (1.0-3.2); LYMPHOCYTES % 18.3 % (18.0-39.1); MEAN CORPUSCULAR HEMOGLOBIN 27.8 pg (28-32); MEAN CORPUSCULAR HGB CONC 31.9 g/dL (31-35); MONOCYTES # (AUTO) 1.9 (0.2-0.8); MONOCYTES % 13.7 % (4.4-11.3); NEUTROPHILS # (AUTO) 8.7 (2.1-6.9); NEUTROPHILS % 63.5 % (38.7-80.0); PLATELET COUNT 105 x10e3/uL (140-360); RED BLOOD COUNT 3.31 x10e6/uL (3.6-5.1); RED CELL DISTRIBUTION WIDTH 21.1 % (11.7-14.4)
[2021-05-25 06:58] LABS: ALBUMIN 2.2 g/dL (3.5-5.0); ALBUMIN/GLOBULIN RATIO 0.6 (0.8-2.0); ANION GAP 10.5 mmol/L (8-16); CALCIUM 7.4 mg/dL (8.4-10.2); CREATININE, SERUM 1.28 mg/dL (0.57-1.11); POTASSIUM 3.5 mmol/L (3.5-5.1)
[2021-05-25] MEDS: PROPRANOLOL HCL 10 MG TAB PO SCH ×2 (09:00→17:00)
[2021-05-25] MEDS: RIFAXIMIN 550 MG TABLET PO SCH ×2 (09:00→17:00)
[2021-05-25] MEDS: FUROSEMIDE INJ 10 MG/ML 4 ML VIAL IV SCH ×2 (09:10→17:20)
[2021-05-25] MEDS: IRON SUCROSE 100 MG in SODIUM CHLORIDE 0.9% 100 ML 100 ML IV SCH (09:10)
[2021-05-25] MEDS: SPIRONOLACTONE 25 MG TAB PO SCH ×3 (09:10→21:45)
[2021-05-25] MEDS: LIDOCAINE 4% PATCH TP SCH ×2 (09:11→21:45)
[2021-05-25] MEDS: LACTULOSE SYRUP 20 GM/30 ML UDC PO SCH (09:11)
[2021-05-26] VITALS: BP 106/51
[2021-05-26 04:00] VITALS: BP 104/50
[2021-05-26 05:35] LABS: BASOPHILS # (AUTO) 0.1 (0.0-0.1); BASOPHILS % 0.9 % (0.0-1.0); EOSINOPHILS # (AUTO) 0.4 (0.0-0.4); EOSINOPHILS % 3.6 % (0.0-6.0); HEMATOCRIT 27.2 % (34.2-44.1); HEMOGLOBIN 8.9 g/dL (12.0-16.0); LYMPHOCYTES # (AUTO) 3.3 (1.0-3.2); LYMPHOCYTES % 27.1 % (18.0-39.1); MEAN CORPUSCULAR HEMOGLOBIN 28.5 pg (28-32); MEAN CORPUSCULAR HGB CONC 32.7 g/dL (31-35); MEAN CORPUSCULAR VOLUME 87.2 fL (81-99); MONOCYTES # (AUTO) 1.6 (0.2-0.8); MONOCYTES % 13.4 % (4.4-11.3); NEUTROPHILS # (AUTO) 6.5 (2.1-6.9); NEUTROPHILS % 53.8 % (38.7-80.0); PLATELET COUNT 97 x10e3/uL (140-360); RED BLOOD COUNT 3.12 x10e6/uL (3.6-5.1); RED CELL DISTRIBUTION WIDTH 21.6 % (11.7-14.4)
[2021-05-26 06:01] LABS: ALBUMIN 2.1 g/dL (3.5-5.0); ALBUMIN/GLOBULIN RATIO 0.7 (0.8-2.0); ANION GAP 10.8 mmol/L (8-16); CALCIUM 7.6 mg/dL (8.4-10.2); CREATININE, SERUM 1.26 mg/dL (0.57-1.11); POTASSIUM 3.8 mmol/L (3.5-5.1)
[2021-05-26] MEDS: PIPERACILLIN/TAZOBACTAM 3.375 GM in SODIUM CHLORIDE 0.9% 50ML 50 ML IV SCH (06:16)
[2021-05-26] MEDS: PANTOPRAZOLE SOD 40 MG TABEC PO SCH (06:16)
[2021-05-26 07:58] VITALS: BP 102/50
[2021-05-26 09:00] VITALS: BP 102/50
[2021-05-26] MEDS: RIFAXIMIN 550 MG TABLET PO SCH (09:00)
[2021-05-26] MEDS: LACTULOSE SYRUP 20 GM/30 ML UDC PO SCH (09:52)
[2021-05-26] MEDS: SPIRONOLACTONE 25 MG TAB PO SCH (09:53)
[2021-05-26] MEDS: PROPRANOLOL HCL 10 MG TAB PO SCH (09:53)
[2021-05-26] MEDS: FUROSEMIDE INJ 10 MG/ML 4 ML VIAL IV SCH (09:59)
[2021-05-26] MEDS: IRON SUCROSE 100 MG in SODIUM CHLORIDE 0.9% 100 ML 100 ML IV SCH (10:00)
[2021-05-26] MEDS: LIDOCAINE 4% PATCH TP SCH (10:00)
[2021-05-26 11:34] VITALS: BP 101/51
[2021-05-26 12:58] VITALS: BP 116/62
[2021-05-26] MEDS ORDERED: PANTOPRAZOLE SO40 MG PO (13:50)
[2021-05-26] MEDS ORDERED: PROPRANOLOL HCL10 MG PO (13:50)
[2021-05-26] MEDS ORDERED: METRONIDAZOLE500 MG PO (13:51)
[2021-05-26] MEDS ORDERED: CEFDINIR300 MG PO (13:51)
== END 2021-05-26 16:11 | disposition home health service (06) | DRG 432 ==
LOC: ER 22:48 → ERHOLD 05-18 00:37 → ICU 05-18 02:00 → MED/SURG3 05-19 18:46
PROVIDERS: ADMIT Internal Medicine; ATTEND Internal Medicine
PROC: 30233N1 Transfusion of Nonautologous Red Blood Cells into Peripheral Vein, Percutaneous Approach (ICD-10-PCS; 2021-05-18)
PROC: 30233L1 Transfusion of Nonautologous Fresh Plasma into Peripheral Vein, Percutaneous Approach (ICD-10-PCS; 2021-05-19)
PROC: 30233K1 Transfusion of Nonautologous Frozen Plasma into Peripheral Vein, Percutaneous Approach (ICD-10-PCS; 2021-05-19)
PROC: 06L38CZ Occlusion of Esophageal Vein with Extraluminal Device, Via Natural or Artificial Opening Endoscopic (ICD-10-PCS; principal; 2021-05-21 17:02)
DX: K70.30 Alcoholic cirrhosis of liver without ascites (principal); K76.7 Hepatorenal syndrome; I85.11 Secondary esophageal varices with bleeding; N17.0 Acute kidney failure with tubular necrosis; K76.6 Portal hypertension; N39.0 Urinary tract infection, site not specified; M48.56XA Collapsed vertebra, not elsewhere classified, lumbar region, initial encounter for fracture; M87.851 Other osteonecrosis, right femur; F10.21 Alcohol dependence, in remission; R09.02 Hypoxemia; D50.9 Iron deficiency anemia, unspecified; K31.89 Other diseases of stomach and duodenum; K44.9 Diaphragmatic hernia without obstruction or gangrene; K70.40 Alcoholic hepatic failure without coma; K76.0 Fatty (change of) liver, not elsewhere classified; Z83.3 Family history of diabetes mellitus; Z82.49 Family history of ischemic heart disease and other diseases of the circulatory system; Z20.822 Contact with and (suspected) exposure to COVID-19
CPT/HCPCS: 36415; 43239; 43255; 70450; 71045; 72100; 72131; 72220; 76705; 76770; 80048; 80053; 80061; 81001; 82105; 82140; 82270; 82570; 82607; 82746; 83540; 83605; 83735; 83880; 84100; 84300; 84443; 84466; 84484; 85014; 85018; 85025; 85045; 85610; 86850; 86900; 86920; 87040; 87086; 93005; 94799; 97139; 99251; 99284; J0696; J1756; J1940; J2250; J2353; J2405; J2543; J3010; J3411; J3430; J3480; J7030; J7042; J7050; P9016; P9017; P9045; U0002

== ENCOUNTER 2021-08-19 01:12 | Inpatient (IN) | payer OTHER ==
[2021-08-19] VITALS (55 sets, daily range): BP systolic 50–135; BP diastolic 28–93
[~2021-08-19] VITALS: Ht 157.5 cm; Wt 90.3 kg
[~2021-08-19 01:12] MED LIST changes: +CEFDINIR300 MG PO; +METRONIDAZOLE500 MG PO; +PANTOPRAZOLE SO40 MG PO; +PROPRANOLOL HCL10 MG PO
[2021-08-19 02:12] LABS: BASOPHILS % 0.9 % (0.0-1.0); HEMATOCRIT 28.4 % (34.2-44.1); HEMOGLOBIN 9.3 g/dL (12.0-16.0); LYMPHOCYTES # (AUTO) 0.6 (1.0-3.2); LYMPHOCYTES % 27.4 % (18.0-39.1); MEAN CORPUSCULAR HEMOGLOBIN 33.5 pg (28-32); MEAN CORPUSCULAR HGB CONC 32.7 g/dL (31-35); MEAN CORPUSCULAR VOLUME 102.2 fL (81-99); MONOCYTES # (AUTO) 0.3 (0.2-0.8); MONOCYTES % 12.1 % (4.4-11.3); NEUTROPHILS # (AUTO) 1.3 (2.1-6.9); NEUTROPHILS % 59.2 % (38.7-80.0); PLATELET COUNT 88 x10e3/uL (140-360); RED BLOOD COUNT 2.78 x10e6/uL (3.6-5.1); RED CELL DISTRIBUTION WIDTH 13.8 % (11.7-14.4)
[2021-08-19] MEDS ORDERED: FENTANYL CITRATE/PF 100MCG/2 ML INJ IV PRN (02:15)
[2021-08-19] MEDS ORDERED: LACTATED RINGER'S 500 ML IV ONE (02:30)
[2021-08-19] MEDS ORDERED: ALBUMIN 25% 25GM 100ML 0.25 GM/ML BTL IV ONE (02:30)
[2021-08-19 02:32] LABS: ALBUMIN 2.5 g/dL (3.5-5.0); ALBUMIN/GLOBULIN RATIO 0.5 (0.8-2.0); ANION GAP 19.4 mmol/L (8-16); CALCIUM 8.3 mg/dL (8.4-10.2); CREATININE, SERUM 1.45 mg/dL (0.57-1.11); POTASSIUM 3.4 mmol/L (3.5-5.1)
[2021-08-19] MEDS ORDERED: ALBUMIN 25% 12.5GM 50ML 100 ML IV ONE (02:58)
[2021-08-19] MEDS ORDERED: LACTATED RINGER'S 1,000 ML ONE (02:58)
[2021-08-19 03:32] LABS: CLARITY,URINE CLEAR (CLEAR); COLOR,URINE AMBER (YELLOW)
[2021-08-19 03:33] LABS: KETONES,URINE TRACE (NEGATIVE); LEUKOCYTE ESTERASE ,URINE NEGATIVE (NEGATIVE); NITRITE,URINE NEGATIVE (NEGATIVE); PROTEIN,URINE DIPSTICK NEGATIVE (NEGATIVE)
[2021-08-19 03:38] LABS: RBC,URINE 0-5 /HPF (0-5); WBC,URINE (MAN) 0-5 /HPF (0-5)
[2021-08-19 03:39] LABS: BACTERIA,URINE FEW /HPF; EPITHELIAL CELLS,URINE RARE /LPF
[2021-08-19] MEDS ORDERED: Morphine 2mg Syringe 2 MG/ML SYR IV PRN (04:00)
[2021-08-19] MEDS ORDERED: ACETAMINOPHEN 325 MG TAB PO ONE (05:30)
[2021-08-19] MEDS ORDERED: ACETAMINOPHEN 325 MG TAB ONE (05:41)
[2021-08-19] MEDS: SODIUM CHLORIDE 0.9% 1000ML 1,000 ML ONE ×3 (08:41→08:47)
[2021-08-19] MEDS ORDERED: SODIUM CHLORIDE 0.9% 500ML 500 ML IV ONE (09:00)
[2021-08-19] MEDS ORDERED: ALBUMIN 25% 25GM 100ML 0.25 GM/ML BTL IV SCH (09:30)
[2021-08-19 09:39] LABS: INR 2.38; PROTHROMBIN TIME 27.8 seconds (11.9-14.5)
[2021-08-19] MEDS ORDERED: Morphine 4mg INJECTION 4 MG/ML INJ IV PRN (09:45)
[2021-08-19] MEDS ORDERED: ALBUMIN 25% 25GM 100ML 100 ML IV SCH (10:00)
[2021-08-19] MEDS ORDERED: FUROSEMIDE40 MG PO (10:03)
[2021-08-19] MEDS ORDERED: SPIRONOLACTONE25 MG PO (10:14)
[2021-08-19] MEDS: ALBUMIN 25% 12.5GM 50ML 100 ML IV SCH ×2 (10:45→10:58)
[2021-08-19] MEDS: NOREPINEPHRINE 8 MG/D5W 250 ML 250 ML IV SCH (13:15)
[2021-08-19] MEDS: MEROPENEM 1 GM in SODIUM CHLORIDE 0.9% 100 ML IV SCH (16:54)
[2021-08-19] MEDS: RIFAXIMIN 550 MG TABLET PO SCH (16:54)
[2021-08-19] MEDS: ALBUMIN 25% 12.5GM 50ML 50 ML IV SCH ×2 (17:01→18:16)
[2021-08-19] MEDS: TRAMADOL HCL 50 MG TAB PO PRN (17:16)
[2021-08-19] MEDS: ONDANSETRON HCL INJ 2MG/ML 2ML 2 MG/ML VIAL IV PRN (21:54)
[2021-08-19] MEDS ORDERED: IBUPROFEN 800MG/ 200ML 800 MG in SODIUM CHLORIDE 0.9% 250ML 250 ML IV PRN (23:15)
[2021-08-20] VITALS (70 sets, daily range): BP systolic 62–145; BP diastolic 27–123
[2021-08-20] MEDS: ONDANSETRON HCL INJ 2MG/ML 2ML 2 MG/ML VIAL IV PRN (02:23)
[2021-08-20] MEDS: NOREPINEPHRINE 8 MG/D5W 250 ML 250 ML IV SCH ×2 (05:30→21:31)
[2021-08-20 06:41] LABS: BASOPHILS % 0.3 % (0.0-1.0); EOSINOPHILS # (AUTO) 0.2 (0.0-0.4); EOSINOPHILS % 2.6 % (0.0-6.0); MEAN CORPUSCULAR HEMOGLOBIN 33.3 pg (28-32); MEAN CORPUSCULAR HGB CONC 30.8 g/dL (31-35); MEAN CORPUSCULAR VOLUME 108.3 fL (81-99); MONOCYTES # (AUTO) 0.5 (0.2-0.8); MONOCYTES % 8.7 % (4.4-11.3); NEUTROPHILS # (AUTO) 3.9 (2.1-6.9); NEUTROPHILS % 67.6 % (38.7-80.0); PLATELET COUNT 61 x10e3/uL (140-360); RED CELL DISTRIBUTION WIDTH 13.9 % (11.7-14.4)
[2021-08-20] MEDS: MEROPENEM 1 GM in SODIUM CHLORIDE 0.9% 100 ML IV SCH (06:51)
[2021-08-20] MEDS ORDERED: PROMETHAZINE 25MG/ NS 50ML (IV) IV PRN (07:00)
[2021-08-20 07:12] LABS: ANION GAP 20.5 mmol/L (8-16); CALCIUM 7.6 mg/dL (8.4-10.2); CREATININE, SERUM 2.56 mg/dL (0.57-1.11); POTASSIUM 3.5 mmol/L (3.5-5.1)
[2021-08-20] MEDS ORDERED: ALBUMIN 25% 25GM 100ML 0.25 GM/ML BTL IV ONE (07:15)
[2021-08-20] MEDS: RIFAXIMIN 550 MG TABLET PO SCH ×2 (07:59→18:16)
[2021-08-20] MEDS: ALBUMIN 25% 25GM 100ML 100 ML IV SCH ×2 (07:59→09:30)
[2021-08-20] MEDS ORDERED: SPIRONOLACTONE 25 MG TAB PO SCH (09:00)
[2021-08-20] MEDS ORDERED: LACTATED RINGER'S 1,000 ML INJ ONE (10:00)
[2021-08-20 11:42] LABS: BAND NEUTROPHILS % (MANUAL) 8 %; EOSINOPHILS % (MANUAL) 2 % (0-7); LYMPHOCYTES % (MANUAL) 20 % (19-48); METAMYELOCYTES % (MANUAL) 3 % (0-0); MONOCYTES % (MANUAL) 31 % (3.4-9.0); NEUTROPHILS % (MANUAL) 36 % (40-74); PLATELET ESTIMATE MODERATELY DECREASED
[2021-08-20 11:43] LABS: PLATELET MORPHOLOGY COMMENT NORMAL; RBC MORPHOLOGY COMMENT NORMAL
[2021-08-20] MEDS ORDERED: MAGNESIUM SULFATE 2GM/50ML 50 ML IV ONE ×2 (15:00→18:24)
[2021-08-20] MEDS ORDERED: FUROSEMIDE INJ 10 MG/ML 4 ML VIAL IV ONE (15:20)
[2021-08-20 15:45] LABS: ABG HCO3 20 mmol/L (22-26); ABG PCO2 38 mmHg (35-45); ABG PH 7.33 (7.35-7.45); ABG PO2 90 mmHg (80-105); ABG TCO2 21
[2021-08-20] MEDS ORDERED: BUMETANIDE INJ 0.25MG/ML 4ML VIAL IV ONE (18:15)
[2021-08-20] MEDS: LACTATED RINGER'S 1,000 ML INJ SCH (19:47)
[2021-08-21] VITALS (66 sets, daily range): BP systolic 70–117; BP diastolic 30–77
[2021-08-21] MEDS: NOREPINEPHRINE 8 MG/D5W 250 ML 250 ML IV SCH ×4 (02:22→21:04)
[2021-08-21] MEDS: LACTATED RINGER'S 1,000 ML INJ SCH (06:03)
[2021-08-21] MEDS: RIFAXIMIN 550 MG TABLET PO SCH ×3 (08:08→15:54)
[2021-08-21 08:46] LABS: BASOPHILS # (AUTO) 0.2 (0.0-0.1); BASOPHILS % 0.5 % (0.0-1.0); EOSINOPHILS # (AUTO) 0.2 (0.0-0.4); EOSINOPHILS % 0.6 % (0.0-6.0); HEMATOCRIT 25.7 % (34.2-44.1); HEMOGLOBIN 8.3 g/dL (12.0-16.0); LYMPHOCYTES # (AUTO) 2.1 (1.0-3.2); LYMPHOCYTES % 6.8 % (18.0-39.1); MEAN CORPUSCULAR HEMOGLOBIN 33.3 pg (28-32); MEAN CORPUSCULAR HGB CONC 32.3 g/dL (31-35); MEAN CORPUSCULAR VOLUME 103.2 fL (81-99); MONOCYTES # (AUTO) 2.9 (0.2-0.8); MONOCYTES % 9.2 % (4.4-11.3); NEUTROPHILS # (AUTO) 23.7 (2.1-6.9); NEUTROPHILS % 76.8 % (38.7-80.0); RED BLOOD COUNT 2.49 x10e6/uL (3.6-5.1); RED CELL DISTRIBUTION WIDTH 13.9 % (11.7-14.4)
[2021-08-21 08:50] LABS: PLATELET COUNT 36 x10e3/uL (140-360)
[2021-08-21] MEDS ORDERED: SODIUM CHLORIDE 0.9% 1000ML 1,000 ML ONE (09:07)
[2021-08-21 09:14] LABS: ALBUMIN 2.8 g/dL (3.5-5.0); ALBUMIN/GLOBULIN RATIO 0.9 (0.8-2.0); ANION GAP 19.9 mmol/L (8-16); CALCIUM 7.4 mg/dL (8.4-10.2); CREATININE, SERUM 3.5 mg/dL (0.57-1.11)
[2021-08-21 09:29] LABS: POTASSIUM 4.9 mmol/L (3.5-5.1)
[2021-08-21] MEDS ORDERED: DEXTROSE 50% SYRINGE 50 ML IV ONE ×2 (09:42→10:00)
[2021-08-21] MEDS ORDERED: Vancomycin IV 1 GM in SODIUM CHLORIDE 0.9% 250ML 250 ML IV ONE (10:00)
[2021-08-21] MEDS ORDERED: Vancomycin IV 1 GM VIAL ONE (10:48)
[2021-08-21] MEDS ORDERED: SODIUM CHLORIDE 0.9% 250ML 250 ML ONE (10:50)
[2021-08-21 11:36] LABS: BAND NEUTROPHILS % (MANUAL) 1 %; LYMPHOCYTES % (MANUAL) 6 % (19-48); METAMYELOCYTES % (MANUAL) 4 % (0-0); MONOCYTES % (MANUAL) 15 % (3.4-9.0); MYELOCYTES % (MANUAL) 1 % (0-0); NEUTROPHILS % (MANUAL) 73 % (40-74)
[2021-08-21 11:37] LABS: PLATELET ESTIMATE MARKEDLY DECREASED; PLATELET MORPHOLOGY COMMENT NORMAL; RBC MORPHOLOGY COMMENT NORMAL; TOXIC GRANULATION MODERATE
[2021-08-21] MEDS: Clindamycin INJ 300 MG/50 ML 50 ML IV SCH ×2 (12:08→17:01)
[2021-08-21] MEDS ORDERED: SODIUM BICARBONATE 8.4% IV SCH (12:30)
[2021-08-21] MEDS ORDERED: DEXTROSE 10% IV SCH (12:30)
[2021-08-21] MEDS: VASOPRESSIN 60 UNIT in DEXTROSE 5% 50ML 57 ML IV PRN (15:49)
[2021-08-21] MEDS: DEXTROSE 5%/0.9% SOD CHL 1,000 ML IV SCH ×2 (15:52→22:57)
[2021-08-21] MEDS: CALCIUM CARBONATE 500 MG CHEWABLE TABS PO SCH (16:30)
[2021-08-21] MEDS ORDERED: MAGNESIUM OXIDE 400 MG TAB PO ONE (16:45)
[2021-08-21] MEDS ORDERED: MANNITOL 25% 12.5GM/50 ML VIAL IV PRN (18:00)
[2021-08-21] MEDS ORDERED: SODIUM CHLORIDE 0.9% 1000ML 2,000 ML IV PRN (18:00)
[2021-08-21] MEDS ORDERED: HEPARIN SOD (PORCINE) 1000 UNIT/ML SDV IV PRN (18:00)
[2021-08-21] MEDS ORDERED: GENTAMICIN 120MG/NS 100ML 100 ML IV STA (22:19)
[2021-08-22] VITALS (65 sets, daily range): BP systolic 74–131; BP diastolic 29–95
[2021-08-22] MEDS: NOREPINEPHRINE 8 MG/D5W 250 ML 250 ML IV SCH ×4 (01:45→16:40)
[2021-08-22] MEDS: Clindamycin INJ 300 MG/50 ML 50 ML IV SCH (01:46)
[2021-08-22] MEDS: DEXTROSE 5%/0.9% SOD CHL 1,000 ML IV SCH ×3 (06:26→23:45)
[2021-08-22] MEDS: VASOPRESSIN 60 UNIT in DEXTROSE 5% 50ML 57 ML IV PRN (06:27)
[2021-08-22 07:11] LABS: EOSINOPHILS # (AUTO) 0.1 (0.0-0.4); EOSINOPHILS % 0.1 % (0.0-6.0); HEMOGLOBIN 7.7 g/dL (12.0-16.0); LYMPHOCYTES # (AUTO) 2.1 (1.0-3.2); LYMPHOCYTES % 3.7 % (18.0-39.1); MEAN CORPUSCULAR HEMOGLOBIN 33.3 pg (28-32); MEAN CORPUSCULAR HGB CONC 33.9 g/dL (31-35); MEAN CORPUSCULAR VOLUME 98.3 fL (81-99); NEUTROPHILS # (AUTO) 46.5 (2.1-6.9); NEUTROPHILS % 82.4 % (38.7-80.0); RED BLOOD COUNT 2.31 x10e6/uL (3.6-5.1); RED CELL DISTRIBUTION WIDTH 13.7 % (11.7-14.4)
[2021-08-22 07:25] LABS: HEMATOCRIT 22.7 % (34.2-44.1)
[2021-08-22 07:29] LABS: PLATELET COUNT 24 x10e3/uL (140-360)
[2021-08-22 07:33] LABS: ALBUMIN 2.4 g/dL (3.5-5.0); ALBUMIN/GLOBULIN RATIO 0.8 (0.8-2.0); ANION GAP 14.7 mmol/L (8-16); CALCIUM 7.1 mg/dL (8.4-10.2); CREATININE, SERUM 3.02 mg/dL (0.57-1.11); POTASSIUM 3.7 mmol/L (3.5-5.1)
[2021-08-22 07:52] LABS: MAGNESIUM 1.7 MG/DL (1.3-2.1)
[2021-08-22 09:35] LABS: BAND NEUTROPHILS % (MANUAL) 13 %; LYMPHOCYTES % (MANUAL) 3 % (19-48); MONOCYTES % (MANUAL) 2 % (3.4-9.0); NEUTROPHILS % (MANUAL) 82 % (40-74)
[2021-08-22 09:36] LABS: PLATELET ESTIMATE MARKEDLY DECREASED; PLATELET MORPHOLOGY COMMENT NORMAL; RBC MORPHOLOGY COMMENT NORMAL; SMUDGE CELLS FEW
[2021-08-22] MEDS: CALCIUM CARBONATE 500 MG CHEWABLE TABS PO SCH ×2 (10:01→19:17)
[2021-08-22] MEDS: RIFAXIMIN 550 MG TABLET PO SCH ×2 (10:01→19:17)
[2021-08-22] MEDS ORDERED: HEPARIN SOD (PORCINE) 1000 UNIT/ML SDV IV PRN (12:00)
[2021-08-22] MEDS: ALBUMIN 25% 12.5GM 0.25 GM/ML BTL IV PRN (12:17)
[2021-08-22] MEDS: Doxycycline IV 100 MG in SODIUM CHLORIDE 0.9% 100 ML IV SCH (13:00)
[2021-08-22] MEDS ORDERED: MAGNESIUM OXIDE 400 MG TAB PO ONE (15:30)
[2021-08-22] MEDS ORDERED: MAGNESIUM OXIDE 400 MG TAB ONE (19:28)
[2021-08-23] VITALS (69 sets, daily range): BP systolic 94–139; BP diastolic 51–71
[2021-08-23] MEDS: Doxycycline IV 100 MG in SODIUM CHLORIDE 0.9% 100 ML IV SCH ×2 (02:37→15:39)
[2021-08-23] MEDS: TRAMADOL HCL 50 MG TAB PO PRN (02:37)
[2021-08-23] MEDS: VASOPRESSIN 60 UNIT in DEXTROSE 5% 50ML 57 ML IV PRN ×2 (02:38→21:25)
[2021-08-23] MEDS: NOREPINEPHRINE 8 MG/D5W 250 ML 250 ML IV SCH ×5 (02:39→21:25)
[2021-08-23 06:14] LABS: EOSINOPHILS # (AUTO) 0.4 (0.0-0.4); EOSINOPHILS % 0.9 % (0.0-6.0); HEMATOCRIT 23.6 % (34.2-44.1); LYMPHOCYTES # (AUTO) 2.3 (1.0-3.2); MEAN CORPUSCULAR HEMOGLOBIN 32.9 pg (28-32); MEAN CORPUSCULAR HGB CONC 33.9 g/dL (31-35); MEAN CORPUSCULAR VOLUME 97.1 fL (81-99); MONOCYTES # (AUTO) 3.3 (0.2-0.8); MONOCYTES % 7.1 % (4.4-11.3); NEUTROPHILS % 83.3 % (38.7-80.0); RED BLOOD COUNT 2.43 x10e6/uL (3.6-5.1); RED CELL DISTRIBUTION WIDTH 14.7 % (11.7-14.4)
[2021-08-23 06:30] LABS: PLATELET COUNT 41 x10e3/uL (140-360)
[2021-08-23 06:41] LABS: ALBUMIN 2.7 g/dL (3.5-5.0); ANION GAP 11.1 mmol/L (8-16); CALCIUM 7.4 mg/dL (8.4-10.2); CREATININE, SERUM 2.1 mg/dL (0.57-1.11); POTASSIUM 3.1 mmol/L (3.5-5.1)
[2021-08-23] MEDS: DEXTROSE 5%/0.9% SOD CHL 1,000 ML IV SCH (07:45)
[2021-08-23 08:28] LABS: INR 3.03; PROTHROMBIN TIME 33.5 seconds (11.9-14.5)
[2021-08-23] MEDS: CALCIUM CARBONATE 500 MG CHEWABLE TABS PO SCH ×2 (08:58→17:00)
[2021-08-23] MEDS: RIFAXIMIN 550 MG TABLET PO SCH ×2 (08:58→17:00)
[2021-08-23 09:23] LABS: BAND NEUTROPHILS % (MANUAL) 3 %; LYMPHOCYTES % (MANUAL) 2 % (19-48); MONOCYTES % (MANUAL) 5 % (3.4-9.0); NEUTROPHILS % (MANUAL) 90 % (40-74)
[2021-08-23 09:24] LABS: PLATELET ESTIMATE MARKEDLY DECREASED; PLATELET MORPHOLOGY COMMENT NORMAL; RBC MORPHOLOGY COMMENT NORMAL; TOXIC GRANULATION SLIGHT
[2021-08-23] MEDS ORDERED: POTASSIUM CHLORIDE 20MEQ/100ML 200 ML IV ONE (13:00)
[2021-08-23] MEDS: ONDANSETRON HCL INJ 2MG/ML 2ML 2 MG/ML VIAL IV PRN (15:47)
[2021-08-24] VITALS (60 sets, daily range): BP systolic 93–126; BP diastolic 45–80
[2021-08-24] MEDS: Doxycycline IV 100 MG in SODIUM CHLORIDE 0.9% 100 ML IV SCH ×2 (01:19→13:57)
[2021-08-24] MEDS: DEXTROSE 5%/0.9% SOD CHL 1,000 ML IV SCH (01:21)
[2021-08-24] MEDS: NOREPINEPHRINE 8 MG/D5W 250 ML 250 ML IV SCH ×3 (07:45→17:15)
[2021-08-24] MEDS: LACTULOSE SYRUP 20 GM/30 ML UDC PO PRN (07:46)
[2021-08-24] MEDS: ONDANSETRON HCL INJ 2MG/ML 2ML 2 MG/ML VIAL IV PRN (07:49)
[2021-08-24] MEDS: RIFAXIMIN 550 MG TABLET PO SCH ×2 (09:00→16:48)
[2021-08-24] MEDS: CALCIUM CARBONATE 500 MG CHEWABLE TABS PO SCH ×2 (09:00→16:48)
[2021-08-24 09:24] LABS: EOSINOPHILS % 2.3 % (0.0-6.0); HEMOGLOBIN 9.1 g/dL (12.0-16.0); LYMPHOCYTES # (AUTO) 3.3 (1.0-3.2); LYMPHOCYTES % 7.7 % (18.0-39.1); MEAN CORPUSCULAR HEMOGLOBIN 32.9 pg (28-32); MEAN CORPUSCULAR HGB CONC 33.7 g/dL (31-35); MEAN CORPUSCULAR VOLUME 97.5 fL (81-99); MONOCYTES # (AUTO) 2.9 (0.2-0.8); MONOCYTES % 6.7 % (4.4-11.3); NEUTROPHILS # (AUTO) 34.3 (2.1-6.9); NEUTROPHILS % 80.3 % (38.7-80.0); RED BLOOD COUNT 2.77 x10e6/uL (3.6-5.1); RED CELL DISTRIBUTION WIDTH 15.3 % (11.7-14.4)
[2021-08-24 09:36] LABS: PLATELET COUNT 37 x10e3/uL (140-360)
[2021-08-24 09:51] LABS: ALBUMIN 2.4 g/dL (3.5-5.0); ALBUMIN/GLOBULIN RATIO 0.7 (0.8-2.0); CALCIUM 7.5 mg/dL (8.4-10.2); CREATININE, SERUM 2.59 mg/dL (0.57-1.11)
[2021-08-25] VITALS (77 sets, daily range): BP systolic 90–112; BP diastolic 37–60
[2021-08-25] MEDS: Doxycycline IV 100 MG in SODIUM CHLORIDE 0.9% 100 ML IV SCH ×2 (01:27→12:43)
[2021-08-25 06:45] LABS: BASOPHILS # (AUTO) 0.2 (0.0-0.1); BASOPHILS % 0.4 % (0.0-1.0); EOSINOPHILS # (AUTO) 0.8 (0.0-0.4); EOSINOPHILS % 2.1 % (0.0-6.0); HEMATOCRIT 25.7 % (34.2-44.1); HEMOGLOBIN 8.6 g/dL (12.0-16.0); LYMPHOCYTES % 7.9 % (18.0-39.1); MEAN CORPUSCULAR HEMOGLOBIN 32.7 pg (28-32); MEAN CORPUSCULAR HGB CONC 33.5 g/dL (31-35); MEAN CORPUSCULAR VOLUME 97.7 fL (81-99); MONOCYTES # (AUTO) 2.5 (0.2-0.8); MONOCYTES % 6.6 % (4.4-11.3); NEUTROPHILS # (AUTO) 30.2 (2.1-6.9); NEUTROPHILS % 78.9 % (38.7-80.0); RED BLOOD COUNT 2.63 x10e6/uL (3.6-5.1); RED CELL DISTRIBUTION WIDTH 14.9 % (11.7-14.4)
[2021-08-25 06:53] LABS: PLATELET COUNT 37 x10e3/uL (140-360)
[2021-08-25 07:01] LABS: ALBUMIN 2.1 g/dL (3.5-5.0); ALBUMIN/GLOBULIN RATIO 0.6 (0.8-2.0); ANION GAP 15.1 mmol/L (8-16); CALCIUM 7.4 mg/dL (8.4-10.2); CREATININE, SERUM 2.93 mg/dL (0.57-1.11); POTASSIUM 4.1 mmol/L (3.5-5.1)
[2021-08-25] MEDS: RIFAXIMIN 550 MG TABLET PO SCH ×2 (08:15→16:39)
[2021-08-25] MEDS: CALCIUM CARBONATE 500 MG CHEWABLE TABS PO SCH ×2 (08:15→16:39)
[2021-08-25 12:53] LABS: BAND NEUTROPHILS % (MANUAL) 1 %; LYMPHOCYTES % (MANUAL) 5 % (19-48); MONOCYTES % (MANUAL) 4 % (3.4-9.0); NEUTROPHILS % (MANUAL) 90 % (40-74); PLATELET ESTIMATE MARKEDLY DECREASED; PLATELET MORPHOLOGY COMMENT NORMAL; RBC MORPHOLOGY COMMENT NORMAL
[2021-08-25] MEDS ORDERED: SODIUM CHLORIDE 1 GM TAB PO ONE (13:30)
[2021-08-25] MEDS: NOREPINEPHRINE 8 MG/D5W 250 ML 250 ML IV SCH (18:21)
[2021-08-26] VITALS (68 sets, daily range): BP systolic 87–120; BP diastolic 35–88
[2021-08-26] MEDS: Doxycycline IV 100 MG in SODIUM CHLORIDE 0.9% 100 ML IV SCH ×3 (00:19→15:46)
[2021-08-26] MEDS: NOREPINEPHRINE 8 MG/D5W 250 ML 250 ML IV SCH ×3 (01:28→17:03)
[2021-08-26] MEDS: VASOPRESSIN 60 UNIT in DEXTROSE 5% 50ML 57 ML IV PRN (01:29)
[2021-08-26 07:54] LABS: BASOPHILS % 0.1 % (0.0-1.0); EOSINOPHILS # (AUTO) 0.3 (0.0-0.4); HEMATOCRIT 23.8 % (34.2-44.1); HEMOGLOBIN 8.4 g/dL (12.0-16.0); LYMPHOCYTES # (AUTO) 2.2 (1.0-3.2); LYMPHOCYTES % 6.4 % (18.0-39.1); MEAN CORPUSCULAR HEMOGLOBIN 33.2 pg (28-32); MEAN CORPUSCULAR HGB CONC 35.3 g/dL (31-35); MEAN CORPUSCULAR VOLUME 94.1 fL (81-99); MONOCYTES # (AUTO) 2.6 (0.2-0.8); MONOCYTES % 7.4 % (4.4-11.3); NEUTROPHILS % 81.1 % (38.7-80.0); PLATELET COUNT 52 x10e3/uL (140-360); RED BLOOD COUNT 2.53 x10e6/uL (3.6-5.1); RED CELL DISTRIBUTION WIDTH 14.2 % (11.7-14.4)
[2021-08-26 08:16] LABS: ALBUMIN 1.9 g/dL (3.5-5.0); ALBUMIN/GLOBULIN RATIO 0.5 (0.8-2.0); ANION GAP 13.5 mmol/L (8-16); CALCIUM 7.6 mg/dL (8.4-10.2); CREATININE, SERUM 3.55 mg/dL (0.57-1.11); POTASSIUM 4.5 mmol/L (3.5-5.1)
[2021-08-26] MEDS: RIFAXIMIN 550 MG TABLET PO SCH ×2 (09:00→17:04)
[2021-08-26] MEDS: CALCIUM CARBONATE 500 MG CHEWABLE TABS PO SCH ×2 (09:00→17:04)
[2021-08-26] MEDS: SODIUM CHLORIDE 1 GM TAB PO SCH ×3 (09:00→17:07)
[2021-08-26 09:08] LABS: BAND NEUTROPHILS % (MANUAL) 1 %; EOSINOPHILS % (MANUAL) 6 % (0-7); LYMPHOCYTES % (MANUAL) 4 % (19-48); METAMYELOCYTES % (MANUAL) 1 % (0-0); MONOCYTES % (MANUAL) 5 % (3.4-9.0); MYELOCYTES % (MANUAL) 2 % (0-0); NEUTROPHILS % (MANUAL) 81 % (40-74); PLATELET ESTIMATE MARKEDLY DECREASED; PLATELET MORPHOLOGY COMMENT NORMAL; RBC MORPHOLOGY COMMENT NORMAL; TOXIC GRANULATION SLIGHT; VACUOLE,WBC SLIGHT
[2021-08-26] MEDS: ONDANSETRON HCL INJ 2MG/ML 2ML 2 MG/ML VIAL IV PRN (09:18)
[2021-08-26] MEDS ORDERED: HEPARIN SOD (PORCINE) 1000 UNIT/ML SDV IV PRN (11:30)
[2021-08-26] MEDS: ALBUMIN 25% 12.5GM 0.25 GM/ML BTL IV PRN (11:45)
[2021-08-26] MEDS ORDERED: ALBUMIN 25% 25GM 100ML 0.25 GM/ML BTL IV ONE (12:30)
[2021-08-26] MEDS ORDERED: ALBUMIN 25% 25GM 100ML 100 ML IV ONE (12:45)
[2021-08-26] MEDS: LACTULOSE SYRUP 20 GM/30 ML UDC PO PRN (15:46)
[2021-08-27] VITALS (52 sets, daily range): BP systolic 76–114; BP diastolic 37–79
[2021-08-27] MEDS: Doxycycline IV 100 MG in SODIUM CHLORIDE 0.9% 100 ML IV SCH ×2 (03:00→15:51)
[2021-08-27] MEDS: NOREPINEPHRINE 8 MG/D5W 250 ML 250 ML IV SCH ×2 (03:30→15:21)
[2021-08-27] MEDS: VASOPRESSIN 60 UNIT in DEXTROSE 5% 50ML 57 ML IV PRN (05:24)
[2021-08-27 06:51] LABS: BASOPHILS # (AUTO) 0.1 (0.0-0.1); BASOPHILS % 0.3 % (0.0-1.0); EOSINOPHILS # (AUTO) 0.3 (0.0-0.4); EOSINOPHILS % 0.8 % (0.0-6.0); HEMOGLOBIN 7.5 g/dL (12.0-16.0); LYMPHOCYTES # (AUTO) 2.2 (1.0-3.2); MEAN CORPUSCULAR HGB CONC 34.4 g/dL (31-35); MONOCYTES # (AUTO) 2.5 (0.2-0.8); MONOCYTES % 7.7 % (4.4-11.3); NEUTROPHILS # (AUTO) 25.9 (2.1-6.9); NEUTROPHILS % 80.9 % (38.7-80.0); PLATELET COUNT 65 x10e3/uL (140-360); RED BLOOD COUNT 2.27 x10e6/uL (3.6-5.1)
[2021-08-27 07:04] LABS: HEMATOCRIT 21.8 % (34.2-44.1)
[2021-08-27 07:25] LABS: ALANINE AMINOTRANSFERASE 18 IU/L (0-55); ALBUMIN 2.4 g/dL (3.5-5.0); ALBUMIN/GLOBULIN RATIO 0.7 (0.8-2.0); ALKALINE PHOSPHATASE 133 IU/L (40-150); ANION GAP 14.2 mmol/L (8-16); BLOOD UREA NITROGEN 46 mg/dL (7-26); BUN/CREATININE RATIO 15 (6-25); CALCIUM 8.3 mg/dL (8.4-10.2); CARBON DIOXIDE 24 mmol/L (22-29); CHLORIDE 96 mmol/L (98-107); CREATININE, SERUM 3.05 mg/dL (0.57-1.11); GLUCOSE 98 mg/dL (74-118); POTASSIUM 4.2 mmol/L (3.5-5.1); SODIUM 130 mmol/L (136-145)
[2021-08-27 10:36] LABS: EOSINOPHILS % (MANUAL) 1 % (0-7); LYMPHOCYTES % (MANUAL) 1 % (19-48); METAMYELOCYTES % (MANUAL) 3 % (0-0); MONOCYTES % (MANUAL) 3 % (3.4-9.0); MYELOCYTES % (MANUAL) 1 % (0-0); NEUTROPHILS % (MANUAL) 91 % (40-74); PLATELET ESTIMATE MARKEDLY DECREASED; PLATELET MORPHOLOGY COMMENT NORMAL
[2021-08-27 10:37] LABS: TOXIC GRANULATION SLIGHT; VACUOLE,WBC SLIGHT
[2021-08-27] MEDS: CALCIUM CARBONATE 500 MG CHEWABLE TABS PO SCH ×2 (13:15→17:00)
[2021-08-27] MEDS: RIFAXIMIN 550 MG TABLET PO SCH ×2 (13:15→17:00)
[2021-08-27] MEDS: SODIUM CHLORIDE 1 GM TAB PO SCH (13:17)
[2021-08-28] VITALS (59 sets, daily range): BP systolic 72–120; BP diastolic 31–86
[2021-08-28] MEDS: Doxycycline IV 100 MG in SODIUM CHLORIDE 0.9% 100 ML IV SCH ×2 (02:28→15:30)
[2021-08-28] MEDS: NOREPINEPHRINE 8 MG/D5W 250 ML 250 ML IV SCH ×3 (02:31→21:27)
[2021-08-28 07:07] LABS: BASOPHILS # (AUTO) 0.1 (0.0-0.1); BASOPHILS % 0.3 % (0.0-1.0); EOSINOPHILS # (AUTO) 0.2 (0.0-0.4); EOSINOPHILS % 0.6 % (0.0-6.0); HEMOGLOBIN 7.6 g/dL (12.0-16.0); LYMPHOCYTES # (AUTO) 2.1 (1.0-3.2); MEAN CORPUSCULAR HEMOGLOBIN 32.6 pg (28-32); MEAN CORPUSCULAR HGB CONC 33.9 g/dL (31-35); MEAN CORPUSCULAR VOLUME 96.1 fL (81-99); MONOCYTES # (AUTO) 2.5 (0.2-0.8); MONOCYTES % 7.2 % (4.4-11.3); NEUTROPHILS # (AUTO) 29.1 (2.1-6.9); NEUTROPHILS % 82.2 % (38.7-80.0); PLATELET COUNT 92 x10e3/uL (140-360); RED BLOOD COUNT 2.33 x10e6/uL (3.6-5.1); RED CELL DISTRIBUTION WIDTH 14.3 % (11.7-14.4)
[2021-08-28 07:10] LABS: HEMATOCRIT 22.4 % (34.2-44.1)
[2021-08-28 07:49] LABS: ALBUMIN 2.4 g/dL (3.5-5.0); ALBUMIN/GLOBULIN RATIO 0.7 (0.8-2.0); ANION GAP 14.6 mmol/L (8-16); CALCIUM 8.7 mg/dL (8.4-10.2); CREATININE, SERUM 3.69 mg/dL (0.57-1.11); POTASSIUM 4.6 mmol/L (3.5-5.1)
[2021-08-28 09:16] LABS: INR 4.47
[2021-08-28 09:18] LABS: PROTHROMBIN TIME 45.4 seconds (11.9-14.5)
[2021-08-28 09:34] LABS: LYMPHOCYTES % (MANUAL) 4 % (19-48); MONOCYTES % (MANUAL) 4 % (3.4-9.0); MYELOCYTES % (MANUAL) 1 % (0-0); NEUTROPHILS % (MANUAL) 91 % (40-74)
[2021-08-28 09:35] LABS: PLATELET ESTIMATE MODERATELY DECREASED; PLATELET MORPHOLOGY COMMENT RARE EDTA CLUMPING; RBC MORPHOLOGY COMMENT NORMAL
[2021-08-28] MEDS: SODIUM CHLORIDE 1 GM TAB PO SCH (10:05)
[2021-08-28] MEDS: CALCIUM CARBONATE 500 MG CHEWABLE TABS PO SCH ×2 (10:05→17:43)
[2021-08-28] MEDS: RIFAXIMIN 550 MG TABLET PO SCH ×2 (10:06→17:43)
[2021-08-28] MEDS: VASOPRESSIN 60 UNIT in DEXTROSE 5% 50ML 57 ML IV PRN (12:34)
[2021-08-29] VITALS (68 sets, daily range): BP systolic 76–114; BP diastolic 35–68
[2021-08-29] MEDS: Doxycycline IV 100 MG in SODIUM CHLORIDE 0.9% 100 ML IV SCH (03:58)
[2021-08-29] MEDS: NOREPINEPHRINE 8 MG/D5W 250 ML 250 ML IV SCH ×3 (04:49→20:21)
[2021-08-29 07:40] LABS: BASOPHILS # (AUTO) 0.1 (0.0-0.1); BASOPHILS % 0.2 % (0.0-1.0); EOSINOPHILS # (AUTO) 0.2 (0.0-0.4); EOSINOPHILS % 0.5 % (0.0-6.0); HEMOGLOBIN 7.2 g/dL (12.0-16.0); LYMPHOCYTES # (AUTO) 2.2 (1.0-3.2); LYMPHOCYTES % 6.3 % (18.0-39.1); MEAN CORPUSCULAR HEMOGLOBIN 32.9 pg (28-32); MEAN CORPUSCULAR HGB CONC 34.6 g/dL (31-35); MONOCYTES # (AUTO) 2.6 (0.2-0.8); MONOCYTES % 7.3 % (4.4-11.3); NEUTROPHILS # (AUTO) 28.8 (2.1-6.9); NEUTROPHILS % 82.8 % (38.7-80.0); PLATELET COUNT 98 x10e3/uL (140-360); RED BLOOD COUNT 2.19 x10e6/uL (3.6-5.1)
[2021-08-29 08:09] LABS: ALANINE AMINOTRANSFERASE 17 IU/L (0-55); ALBUMIN 2.4 g/dL (3.5-5.0); ALBUMIN/GLOBULIN RATIO 0.7 (0.8-2.0); ALKALINE PHOSPHATASE 144 IU/L (40-150); ANION GAP 16.2 mmol/L (8-16); BLOOD UREA NITROGEN 46 mg/dL (7-26); BUN/CREATININE RATIO 14 (6-25); CALCIUM 8.2 mg/dL (8.4-10.2); CARBON DIOXIDE 24 mmol/L (22-29); CHLORIDE 91 mmol/L (98-107); CREATININE, SERUM 3.18 mg/dL (0.57-1.11); GLUCOSE 192 mg/dL (74-118); POTASSIUM 4.2 mmol/L (3.5-5.1); SODIUM 127 mmol/L (136-145)
[2021-08-29 08:13] LABS: HEMATOCRIT 20.8 % (34.2-44.1)
[2021-08-29] MEDS: RIFAXIMIN 550 MG TABLET PO SCH (08:47)
[2021-08-29] MEDS: CALCIUM CARBONATE 500 MG CHEWABLE TABS PO SCH ×2 (08:47→17:41)
[2021-08-29] MEDS: SODIUM CHLORIDE 1 GM TAB PO SCH (08:47)
[2021-08-29] MEDS: VASOPRESSIN 60 UNIT in DEXTROSE 5% 50ML 57 ML IV PRN (08:48)
[2021-08-29] MEDS ORDERED: LIDOCAINE HCL 1% LOCAL INJ 20 ML VIAL ONE (12:41)
[2021-08-29 13:24] LABS: LYMPHOCYTES % (MANUAL) 3 % (19-48); MONOCYTES % (MANUAL) 4 % (3.4-9.0); NEUTROPHILS % (MANUAL) 93 % (40-74); PLATELET ESTIMATE MODERATELY DECREASED
[2021-08-29 13:25] LABS: PLATELET MORPHOLOGY COMMENT NORMAL; RBC MORPHOLOGY COMMENT NORMAL
[2021-08-29 13:26] LABS: HYPOCHROMASIA SLIGHT
[2021-08-29] MEDS ORDERED: HEPARIN SOD (PORCINE) 1000 UNIT/ML SDV ONE (15:03)
[2021-08-29] MEDS ORDERED: SODIUM CHLORIDE 0.9% 250ML 250 ML ONE (16:28)
[2021-08-29] MEDS: MIDODRINE HCL 5 MG TABLET PO SCH (17:40)
[2021-08-30] VITALS (82 sets, daily range): BP systolic 83–126; BP diastolic 34–85
[2021-08-30] MEDS: NOREPINEPHRINE 8 MG/D5W 250 ML 250 ML IV SCH ×3 (04:01→19:14)
[2021-08-30 07:44] LABS: BASOPHILS # (AUTO) 0.1 (0.0-0.1); BASOPHILS % 0.2 % (0.0-1.0); EOSINOPHILS # (AUTO) 0.2 (0.0-0.4); EOSINOPHILS % 0.4 % (0.0-6.0); LYMPHOCYTES # (AUTO) 2.1 (1.0-3.2); LYMPHOCYTES % 5.7 % (18.0-39.1); MEAN CORPUSCULAR HEMOGLOBIN 32.7 pg (28-32); MEAN CORPUSCULAR HGB CONC 34.2 g/dL (31-35); MEAN CORPUSCULAR VOLUME 95.7 fL (81-99); MONOCYTES # (AUTO) 2.7 (0.2-0.8); MONOCYTES % 7.2 % (4.4-11.3); NEUTROPHILS # (AUTO) 31.3 (2.1-6.9); NEUTROPHILS % 83.6 % (38.7-80.0); PLATELET COUNT 102 x10e3/uL (140-360); RED BLOOD COUNT 2.11 x10e6/uL (3.6-5.1); RED CELL DISTRIBUTION WIDTH 13.6 % (11.7-14.4)
[2021-08-30 07:47] LABS: HEMATOCRIT 20.2 % (34.2-44.1); HEMOGLOBIN 6.9 g/dL (12.0-16.0)
[2021-08-30 08:02] LABS: ALANINE AMINOTRANSFERASE 18 IU/L (0-55); ALBUMIN 2.3 g/dL (3.5-5.0); ALBUMIN/GLOBULIN RATIO 0.7 (0.8-2.0); ALKALINE PHOSPHATASE 135 IU/L (40-150); ANION GAP 16.4 mmol/L (8-16); BLOOD UREA NITROGEN 53 mg/dL (7-26); BUN/CREATININE RATIO 14 (6-25); CARBON DIOXIDE 22 mmol/L (22-29); CHLORIDE 86 mmol/L (98-107); CREATININE, SERUM 3.76 mg/dL (0.57-1.11); GLUCOSE 253 mg/dL (74-118); POTASSIUM 4.4 mmol/L (3.5-5.1); SODIUM 120 mmol/L (136-145)
[2021-08-30] MEDS ORDERED: SODIUM CHLORIDE 0.9% 250ML 250 ML IV ONE (08:30)
[2021-08-30] MEDS: MIDODRINE HCL 5 MG TABLET PO SCH ×3 (09:38→16:07)
[2021-08-30] MEDS: SODIUM CHLORIDE 1 GM TAB PO SCH (09:38)
[2021-08-30] MEDS: CALCIUM CARBONATE 500 MG CHEWABLE TABS PO SCH ×2 (09:38→17:16)
[2021-08-30] MEDS: VASOPRESSIN 60 UNIT in DEXTROSE 5% 50ML 57 ML IV PRN (10:01)
[2021-08-30] MEDS ORDERED: MAGNESIUM SULFATE 2GM/50ML 0 ML IV ONE (19:20)
[2021-08-30] MEDS ORDERED: CALCIUM GLUC 1 G/50 ML NACL 0 ML IV ONE (19:20)
[2021-08-31] VITALS (83 sets, daily range): BP systolic 79–129; BP diastolic 34–66
[2021-08-31] MEDS: NOREPINEPHRINE 8 MG/D5W 250 ML 250 ML IV SCH ×4 (02:30→20:39)
[2021-08-31] MEDS: VASOPRESSIN 60 UNIT in DEXTROSE 5% 50ML 57 ML IV PRN (07:09)
[2021-08-31 07:30] LABS: BASOPHILS # (AUTO) 0.1 (0.0-0.1); BASOPHILS % 0.4 % (0.0-1.0); EOSINOPHILS # (AUTO) 0.2 (0.0-0.4); EOSINOPHILS % 0.5 % (0.0-6.0); HEMOGLOBIN 7.6 g/dL (12.0-16.0); LYMPHOCYTES # (AUTO) 2.5 (1.0-3.2); LYMPHOCYTES % 7.3 % (18.0-39.1); MEAN CORPUSCULAR HEMOGLOBIN 32.6 pg (28-32); MEAN CORPUSCULAR HGB CONC 35.8 g/dL (31-35); MONOCYTES # (AUTO) 2.8 (0.2-0.8); MONOCYTES % 8.4 % (4.4-11.3); NEUTROPHILS # (AUTO) 27.5 (2.1-6.9); NEUTROPHILS % 80.8 % (38.7-80.0); PLATELET COUNT 70 x10e3/uL (140-360); RED BLOOD COUNT 2.33 x10e6/uL (3.6-5.1); RED CELL DISTRIBUTION WIDTH 14.9 % (11.7-14.4)
[2021-08-31 07:33] LABS: HEMATOCRIT 21.2 % (34.2-44.1)
[2021-08-31 07:52] LABS: ALBUMIN 2.4 g/dL (3.5-5.0); ALBUMIN/GLOBULIN RATIO 0.7 (0.8-2.0); ANION GAP 15.9 mmol/L (8-16); CREATININE, SERUM 2.89 mg/dL (0.57-1.11); POTASSIUM 3.9 mmol/L (3.5-5.1)
[2021-08-31] MEDS: MIDODRINE HCL 5 MG TABLET PO SCH ×3 (08:03→15:57)
[2021-08-31] MEDS: SODIUM CHLORIDE 1 GM TAB PO SCH (09:25)
[2021-08-31] MEDS: CALCIUM CARBONATE 500 MG CHEWABLE TABS PO SCH ×4 (09:25→21:39)
[2021-08-31] MEDS: METOCLOPRAMIDE HCL 10 MG/2ML VIAL IV SCH ×3 (13:04→21:33)
[2021-08-31] MEDS ORDERED: SODIUM CHLORIDE 0.9% 250ML 250 ML ONE (13:56)
[2021-08-31] MEDS: LACTULOSE SYRUP 20 GM/30 ML UDC PO SCH (17:27)
[2021-09-01] VITALS (86 sets, daily range): BP systolic 96–133; BP diastolic 39–68
[2021-09-01] MEDS: VASOPRESSIN 60 UNIT in DEXTROSE 5% 50ML 57 ML IV PRN ×2 (02:36→19:22)
[2021-09-01] MEDS: NOREPINEPHRINE 8 MG/D5W 250 ML 250 ML IV SCH ×3 (02:37→22:38)
[2021-09-01 06:50] LABS: BASOPHILS # (AUTO) 0.1 (0.0-0.1); BASOPHILS % 0.3 % (0.0-1.0); EOSINOPHILS # (AUTO) 0.3 (0.0-0.4); EOSINOPHILS % 0.8 % (0.0-6.0); HEMOGLOBIN 7.4 g/dL (12.0-16.0); LYMPHOCYTES # (AUTO) 2.4 (1.0-3.2); LYMPHOCYTES % 6.9 % (18.0-39.1); MEAN CORPUSCULAR HEMOGLOBIN 32.2 pg (28-32); MEAN CORPUSCULAR HGB CONC 34.6 g/dL (31-35); MONOCYTES % 8.7 % (4.4-11.3); NEUTROPHILS # (AUTO) 27.5 (2.1-6.9); NEUTROPHILS % 80.8 % (38.7-80.0); PLATELET COUNT 83 x10e3/uL (140-360); RED CELL DISTRIBUTION WIDTH 14.6 % (11.7-14.4)
[2021-09-01 06:53] LABS: HEMATOCRIT 21.4 % (34.2-44.1)
[2021-09-01 07:11] LABS: ALBUMIN 2.4 g/dL (3.5-5.0); ALBUMIN/GLOBULIN RATIO 0.6 (0.8-2.0); ANION GAP 17.1 mmol/L (8-16); CREATININE, SERUM 3.47 mg/dL (0.57-1.11); POTASSIUM 4.1 mmol/L (3.5-5.1)
[2021-09-01 07:48] LABS: LYMPHOCYTES % (MANUAL) 14 % (19-48); MONOCYTES % (MANUAL) 4 % (3.4-9.0); NEUTROPHILS % (MANUAL) 80 % (40-74); PLATELET ESTIMATE MODERATELY DECREASED; PLATELET MORPHOLOGY COMMENT NORMAL; RBC MORPHOLOGY COMMENT NORMAL
[2021-09-01] MEDS: METOCLOPRAMIDE HCL 10 MG/2ML VIAL IV SCH ×4 (08:07→21:50)
[2021-09-01] MEDS: MIDODRINE HCL 5 MG TABLET PO SCH ×3 (08:08→16:57)
[2021-09-01] MEDS: SODIUM CHLORIDE 1 GM TAB PO SCH (08:36)
[2021-09-01] MEDS: LACTULOSE SYRUP 20 GM/30 ML UDC PO SCH ×2 (08:36→16:58)
[2021-09-01] MEDS: CALCIUM CARBONATE 500 MG CHEWABLE TABS PO SCH ×3 (08:36→21:50)
[2021-09-01] MEDS: ONDANSETRON HCL INJ 2MG/ML 2ML 2 MG/ML VIAL IV PRN (14:13)
[2021-09-02] VITALS (82 sets, daily range): BP systolic 77–118; BP diastolic 35–52
[2021-09-02] MEDS: NOREPINEPHRINE 8 MG/D5W 250 ML 250 ML IV SCH ×3 (03:46→19:53)
[2021-09-02] MEDS: HYDROMORPHONE 1MG/1ML INJ IV PRN ×2 (06:22→16:30)
[2021-09-02 06:34] LABS: BASOPHILS # (AUTO) 0.2 (0.0-0.1); BASOPHILS % 0.4 % (0.0-1.0); EOSINOPHILS # (AUTO) 0.4 (0.0-0.4); EOSINOPHILS % 1.2 % (0.0-6.0); HEMOGLOBIN 7.4 g/dL (12.0-16.0); LYMPHOCYTES # (AUTO) 2.5 (1.0-3.2); LYMPHOCYTES % 7.5 % (18.0-39.1); MEAN CORPUSCULAR HEMOGLOBIN 32.6 pg (28-32); MEAN CORPUSCULAR HGB CONC 35.9 g/dL (31-35); MEAN CORPUSCULAR VOLUME 90.7 fL (81-99); MONOCYTES # (AUTO) 3.1 (0.2-0.8); MONOCYTES % 9.1 % (4.4-11.3); NEUTROPHILS # (AUTO) 26.5 (2.1-6.9); NEUTROPHILS % 78.7 % (38.7-80.0); PLATELET COUNT 102 x10e3/uL (140-360); RED BLOOD COUNT 2.27 x10e6/uL (3.6-5.1); RED CELL DISTRIBUTION WIDTH 14.6 % (11.7-14.4)
[2021-09-02 06:51] LABS: HEMATOCRIT 20.6 % (34.2-44.1)
[2021-09-02 07:07] LABS: ALANINE AMINOTRANSFERASE 21 IU/L (0-55); ALBUMIN 2.2 g/dL (3.5-5.0); ALBUMIN/GLOBULIN RATIO 0.6 (0.8-2.0); ALKALINE PHOSPHATASE 141 IU/L (40-150); ANION GAP 15.3 mmol/L (8-16); BLOOD UREA NITROGEN 59 mg/dL (7-26); BUN/CREATININE RATIO 14 (6-25); CALCIUM 9.2 mg/dL (8.4-10.2); CARBON DIOXIDE 27 mmol/L (22-29); CHLORIDE 87 mmol/L (98-107); CREATININE, SERUM 4.16 mg/dL (0.57-1.11); GLUCOSE 104 mg/dL (74-118); POTASSIUM 4.3 mmol/L (3.5-5.1); SODIUM 125 mmol/L (136-145)
[2021-09-02] MEDS: LACTULOSE SYRUP 20 GM/30 ML UDC PO SCH ×2 (08:17→16:57)
[2021-09-02] MEDS: METOCLOPRAMIDE HCL 10 MG/2ML VIAL IV SCH ×4 (08:17→21:30)
[2021-09-02] MEDS: MIDODRINE HCL 5 MG TABLET PO SCH ×3 (08:17→15:30)
[2021-09-02] MEDS: SODIUM CHLORIDE 1 GM TAB PO SCH (08:17)
[2021-09-02] MEDS: CALCIUM CARBONATE 500 MG CHEWABLE TABS PO SCH ×3 (08:18→21:30)
[2021-09-02 08:39] LABS: LYMPHOCYTES % (MANUAL) 10 % (19-48); MONOCYTES % (MANUAL) 9 % (3.4-9.0); NEUTROPHILS % (MANUAL) 81 % (40-74)
[2021-09-02 08:41] LABS: PLATELET ESTIMATE MODERATELY DECREASED
[2021-09-02 08:44] LABS: PLATELET MORPHOLOGY COMMENT FEW LARGE; RBC MORPHOLOGY COMMENT NORMAL
[2021-09-02] MEDS: VASOPRESSIN 60 UNIT in DEXTROSE 5% 50ML 57 ML IV PRN (16:32)
[2021-09-03] VITALS (96 sets, daily range): BP systolic 82–137; BP diastolic 33–50
[2021-09-03] MEDS: HYDROMORPHONE 1MG/1ML INJ IV PRN ×3 (06:18→21:13)
[2021-09-03 07:42] LABS: ALBUMIN 1.9 g/dL (3.5-5.0); ALBUMIN/GLOBULIN RATIO 0.5 (0.8-2.0); ANION GAP 19.7 mmol/L (8-16); CALCIUM 8.2 mg/dL (8.4-10.2); CREATININE, SERUM 4.93 mg/dL (0.57-1.11); POTASSIUM 4.7 mmol/L (3.5-5.1)
[2021-09-03 07:45] LABS: BASOPHILS # (AUTO) 0.1 (0.0-0.1); BASOPHILS % 0.2 % (0.0-1.0); EOSINOPHILS # (AUTO) 0.3 (0.0-0.4); EOSINOPHILS % 0.9 % (0.0-6.0); LYMPHOCYTES # (AUTO) 2.5 (1.0-3.2); LYMPHOCYTES % 7.5 % (18.0-39.1); MEAN CORPUSCULAR HEMOGLOBIN 32.7 pg (28-32); MEAN CORPUSCULAR VOLUME 93.4 fL (81-99); MONOCYTES # (AUTO) 3.2 (0.2-0.8); MONOCYTES % 9.7 % (4.4-11.3); NEUTROPHILS # (AUTO) 25.8 (2.1-6.9); NEUTROPHILS % 77.6 % (38.7-80.0); PLATELET COUNT 110 x10e3/uL (140-360); RED BLOOD COUNT 1.96 x10e6/uL (3.6-5.1); RED CELL DISTRIBUTION WIDTH 14.4 % (11.7-14.4)
[2021-09-03 07:51] LABS: HEMATOCRIT 18.3 % (34.2-44.1); HEMOGLOBIN 6.4 g/dL (12.0-16.0)
[2021-09-03] MEDS: MIDODRINE HCL 5 MG TABLET PO SCH ×3 (08:08→16:20)
[2021-09-03] MEDS: METOCLOPRAMIDE HCL 10 MG/2ML VIAL IV SCH ×4 (08:08→21:14)
[2021-09-03] MEDS: SODIUM CHLORIDE 1 GM TAB PO SCH (08:09)
[2021-09-03] MEDS: CALCIUM CARBONATE 500 MG CHEWABLE TABS PO SCH ×3 (08:09→21:00)
[2021-09-03] MEDS: LACTULOSE SYRUP 20 GM/30 ML UDC PO SCH ×2 (08:09→16:20)
[2021-09-03] MEDS: VASOPRESSIN 60 UNIT in DEXTROSE 5% 50ML 57 ML IV PRN (09:11)
[2021-09-03] MEDS: NOREPINEPHRINE 8 MG/D5W 250 ML 250 ML IV SCH ×3 (09:12→18:16)
[2021-09-03] MEDS ORDERED: SODIUM CHLORIDE 0.9% 250ML 250 ML IV ONE (09:30)
[2021-09-03] MEDS ORDERED: ALBUMIN 25% 25GM 100ML 0.25 GM/ML BTL IV SCH (09:45)
[2021-09-03] MEDS: OCTREOTIDE ACETATE 0.1 MG/ML 100MCG AMP IV SCH ×2 (10:15→21:15)
[2021-09-03] MEDS ORDERED: IBUPROFEN 800MG/ 200ML 200 ML IV PRN (10:33)
[2021-09-03] MEDS: ALBUMIN 25% 25GM 100ML 100 ML IV SCH ×2 (11:02→21:25)
[2021-09-03 11:15] LABS: EOSINOPHILS % (MANUAL) 1 % (0-7); LYMPHOCYTES % (MANUAL) 10 % (19-48); MONOCYTES % (MANUAL) 3 % (3.4-9.0); NEUTROPHILS % (MANUAL) 85 % (40-74); PLATELET ESTIMATE SLIGHTLY DECREASED; PLATELET MORPHOLOGY COMMENT NORMAL; RBC MORPHOLOGY COMMENT NORMAL
[2021-09-03] MEDS: NOREPINEPHRINE INJ 4MG/4ML 16 MG in DEXTROSE 5% 250ML 250 ML IV SCH (21:39)
[2021-09-04] VITALS (85 sets, daily range): BP systolic 52–124; BP diastolic 27–48
[2021-09-04] MEDS: VASOPRESSIN 60 UNIT in DEXTROSE 5% 50ML 57 ML IV PRN ×2 (03:24→15:11)
[2021-09-04] MEDS: NOREPINEPHRINE INJ 4MG/4ML 16 MG in DEXTROSE 5% 250ML 250 ML IV SCH ×2 (03:25→13:38)
[2021-09-04] MEDS: HYDROMORPHONE 1MG/1ML INJ IV PRN ×4 (03:32→18:38)
[2021-09-04 06:09] LABS: BASOPHILS # (AUTO) 0.1 (0.0-0.1); BASOPHILS % 0.4 % (0.0-1.0); EOSINOPHILS # (AUTO) 0.4 (0.0-0.4); EOSINOPHILS % 1.3 % (0.0-6.0); HEMATOCRIT 22.5 % (34.2-44.1); HEMOGLOBIN 8.1 g/dL (12.0-16.0); LYMPHOCYTES # (AUTO) 2.5 (1.0-3.2); LYMPHOCYTES % 8.7 % (18.0-39.1); MEAN CORPUSCULAR HEMOGLOBIN 32.5 pg (28-32); MEAN CORPUSCULAR VOLUME 90.4 fL (81-99); MONOCYTES # (AUTO) 2.6 (0.2-0.8); PLATELET COUNT 103 x10e3/uL (140-360); RED BLOOD COUNT 2.49 x10e6/uL (3.6-5.1); RED CELL DISTRIBUTION WIDTH 15.4 % (11.7-14.4)
[2021-09-04 06:40] LABS: CREATININE, SERUM 5.32 mg/dL (0.57-1.11); MAGNESIUM 2.3 MG/DL (1.3-2.1)
[2021-09-04] MEDS: METOCLOPRAMIDE HCL 10 MG/2ML VIAL IV SCH ×4 (07:55→21:00)
[2021-09-04] MEDS: MIDODRINE HCL 5 MG TABLET PO SCH ×3 (07:57→16:00)
[2021-09-04 08:01] LABS: PHOSPHORUS 6.8 MG/DL (2.3-4.7)
[2021-09-04 08:42] LABS: BAND NEUTROPHILS % (MANUAL) 1 %; EOSINOPHILS % (MANUAL) 1 % (0-7); LYMPHOCYTES % (MANUAL) 4 % (19-48); MONOCYTES % (MANUAL) 6 % (3.4-9.0); MYELOCYTES % (MANUAL) 3 % (0-0); NEUTROPHILS % (MANUAL) 82 % (40-74); NUCLEATED RED BLOOD CELLS 2; PROMYELOCYTES % (MANUAL) 1 % (0-0)
[2021-09-04 08:44] LABS: PLATELET ESTIMATE SLIGHTLY DECREASED; PLATELET MORPHOLOGY COMMENT FEW LARGE; RBC MORPHOLOGY COMMENT NORMAL
[2021-09-04] MEDS: LACTULOSE SYRUP 20 GM/30 ML UDC PO SCH ×2 (09:00→17:00)
[2021-09-04] MEDS: SODIUM CHLORIDE 1 GM TAB PO SCH (09:00)
[2021-09-04] MEDS: CALCIUM CARBONATE 500 MG CHEWABLE TABS PO SCH ×3 (09:00→21:00)
[2021-09-04] MEDS: ALBUMIN 25% 25GM 100ML 100 ML IV SCH ×2 (09:36→21:00)
[2021-09-04] MEDS: OCTREOTIDE ACETATE 0.1 MG/ML 100MCG AMP IV SCH ×2 (09:37→21:00)
[2021-09-04] MEDS ORDERED: LORAZEPAM INJ 2 MG/ML VIAL IV PRN (17:45)
[2021-09-04] MEDS: Morphine 2mg Syringe 2 MG/ML SYR IV PRN ×2 (17:53→20:47)
[2021-09-04] MEDS ORDERED: DIAZEPAM INJ 5 MG/ML 2 ML IV PRN (19:30)
== END 2021-09-04 23:35 | disposition expired | DRG 871 ==
LOC: ER 01:22 → ERHOLD 04:03 → OBSVTOIN 05:25 → ICU 08:04
PROVIDERS: ADMIT Internal Medicine; ATTEND Internal Medicine
PROC: 3E043XZ Introduction of Vasopressor into Central Vein, Percutaneous Approach (ICD-10-PCS; 2021-08-19)
PROC: 02HV33Z Insertion of Infusion Device into Superior Vena Cava, Percutaneous Approach (ICD-10-PCS; 2021-08-19)
PROC: 3E04329 Introduction of Other Anti-infective into Central Vein, Percutaneous Approach (ICD-10-PCS; 2021-08-19)
PROC: 02HV33Z Insertion of Infusion Device into Superior Vena Cava, Percutaneous Approach (ICD-10-PCS; 2021-08-21)
PROC: 5A1D70Z Performance of Urinary Filtration, Intermittent, Less than 6 Hours Per Day (ICD-10-PCS; 2021-08-21)
PROC: 30233N1 Transfusion of Nonautologous Red Blood Cells into Peripheral Vein, Percutaneous Approach (ICD-10-PCS; 2021-08-22)
PROC: 30233R1 Transfusion of Nonautologous Platelets into Peripheral Vein, Percutaneous Approach (ICD-10-PCS; 2021-08-22)
PROC: 02HV33Z Insertion of Infusion Device into Superior Vena Cava, Percutaneous Approach (ICD-10-PCS; principal; 2021-08-29)
PROC: B548ZZA Ultrasonography of Superior Vena Cava, Guidance (ICD-10-PCS; 2021-08-29)
PROC: B5181ZA Fluoroscopy of Superior Vena Cava using Low Osmolar Contrast, Guidance (ICD-10-PCS; 2021-08-29)
PROC: 30233L1 Transfusion of Nonautologous Fresh Plasma into Peripheral Vein, Percutaneous Approach (ICD-10-PCS; 2021-08-29)
PROC: 30233K1 Transfusion of Nonautologous Frozen Plasma into Peripheral Vein, Percutaneous Approach (ICD-10-PCS; 2021-08-29)
DX: A41.51 Sepsis due to Escherichia coli [E. coli] (principal); G92.8 Other toxic encephalopathy; J96.01 Acute respiratory failure with hypoxia; K76.7 Hepatorenal syndrome; R65.21 Severe sepsis with septic shock; N17.0 Acute kidney failure with tubular necrosis; N18.6 End stage renal disease; K72.00 Acute and subacute hepatic failure without coma; K65.2 Spontaneous bacterial peritonitis; L03.116 Cellulitis of left lower limb; N39.0 Urinary tract infection, site not specified; M87.852 Other osteonecrosis, left femur; D61.818 Other pancytopenia; E87.1 Hypo-osmolality and hyponatremia; I96 Gangrene, not elsewhere classified; D68.4 Acquired coagulation factor deficiency; E44.1 Mild protein-calorie malnutrition; K74.60 Unspecified cirrhosis of liver; K75.81 Nonalcoholic steatohepatitis (NASH); E87.6 Hypokalemia; D50.0 Iron deficiency anemia secondary to blood loss (chronic); F10.11 Alcohol abuse, in remission; I89.0 Lymphedema, not elsewhere classified; E83.51 Hypocalcemia; E83.42 Hypomagnesemia; R23.8 Other skin changes; Z66 Do not resuscitate; K59.00 Constipation, unspecified; E66.9 Obesity, unspecified; E16.1 Other hypoglycemia; Z83.3 Family history of diabetes mellitus; Z82.49 Family history of ischemic heart disease and other diseases of the circulatory system; Z51.5 Encounter for palliative care; Z68.36 Body mass index [BMI] 36.0-36.9, adult
CPT/HCPCS: 36415; 36556; 36569; 36600; 71045; 71250; 74176; 74470; 76700; 76937; 77001; 80048; 80053; 81001; 82805; 82948; 83605; 83735; 83880; 84100; 84484; 85025; 85610; 85730; 86706; 86850; 86900; 86920; 87040; 87071; 87186; 87205; 87340; 90962; 93005; 93306; 93970; 94799; 99251; 99284; C1752; C1769; J1170; J1580; J1644; J1940; J2001; J2150; J2185; J2270; J2354; J2405; J2543; J2550; J2765; J3010; J3360; J3370; J3475; J3480; J7030; J7042; J7050; J7070; J7120; J7121; J7799; P9016; P9017; P9034; P9047